=== PATIENT | female | born 1985 | race Caucasian/White ===

== ENCOUNTER 2017-01-05 11:22 | Emergency (ER) | payer BC ==
[2017-01-05] MEDS ORDERED: oxyCODONE/Acetamin 5/325 MG* TAB PO ONE (13:50)
--- NOTE | 2017-01-05 13:57 | ED ---
Back Pain - HPI Summary HPI Summary: 31 female presents complaining of chronic lower back pain that has been causing her pain since Dec 05 of this month and has progressively getting worse. Patient states she has a history of back pain. She called her PCP who told her to come to ED to see if she could have the MRI expedited. She has been taking ibuprofen 3000mg a day and prednisone with little relief. She has also tried taking naproxen and tramadol in the past without any relief. She has been using ice/heat. She has been unable to take care of her daughter, move or walk because the pain is so bad. She is really tired of the pain and just could not take it anymore. Pain radiates into her buttocks and down her right leg, it also has started going into her left leg. Denies saddle anesthesia, numbness/ tingling and bladder/bowel incontinence. No difficulty breathing. - History of Current Complaint Chief Complaint: EDBackInjuryPain Stated Complaint: BACK PAIN / DIFF WALKING Time Seen by Provider: 01/05/17 11:57 Hx Obtained From: Patient Hx Last Menstrual Period: IUD - INTERMITTENT BLEEDING SINCE JUNE 2015 Onset/Duration: Gradual Onset, Worse Since Onset/Duration: Started Weeks Ago, Atraumatic, Worse Since Timing: Constant Severity Initially: Moderate Severity Currently: Moderate Pain Intensity: 8 Pain Scale Used: 0-10 Numeric Character: Sharp, Aching Aggravating Symptom(s): Movement, Lifting, Walking Alleviating Symptom(s): Rest Associated Signs And Symptoms: Positive: Negative, Pain with Weight Bearing. Negative: Swelling, Redness, Bruising, Weakness, Numbness, Tingling, Bladder Incontinence, Bowel Incontinence - Allergies/Home Medications Allergies/Adverse Reactions: Allergies Allergy/AdvReac Type Severity Reaction Status Date / Time Hydrocodone AdvReac Nausea Verified 01/05/17 11:33 cold stimulus Allergy Severe See Comment Uncoded 01/05/17 11:33 PMH/Surg Hx/FS Hx/Imm Hx Cardiovascular History: Denies: Hx Pacemaker/ICD Sensory History: Denies: Hx Contacts or Glasses, Hx Hearing Aid Opthamlomology History: Denies: Hx Contacts or Glasses Neurological History: Reports: Hx Migraine - 3-4 TIMES PER MONTH- TREATS WITH IBUPROFEN, Other Neuro Impairments/Disorders - HX OF MIGRAINES Psychiatric History: Reports: Hx Anxiety - ONLY WHEN FLY'S, Hx Depression - NO MEDICATION FOR AT THIS TIME- STATES PLANS TO START MEDICATION SOON Denies: Hx Eating Disorder, Hx of Violent Episodes Against Others Infectious Disease History: No Infectious Disease History: Denies: History Other Infectious Disease, Traveled Outside the [place] in Last 30 Days - Social History Alcohol Use: Occasionally Substance Use Type: Reports: None Smoking Status (MU): Never Smoked Tobacco Review of Systems Constitutional: Negative Cardiovascular: Negative Respiratory: Negative Gastrointestinal: Negative Genitourinary: Negative Positive: Arthralgia, Myalgia, Decreased ROM - lower back Skin: Negative Neurological: Negative Psychological: Normal All Other Systems Reviewed And Are Negative: Yes Physical Exam Triage Information Reviewed: Yes Vital Signs On Initial Exam: Initial Vitals Temp Pulse Resp BP Pulse Ox 98.1 F 95 16 129/78 100 01/05/17 11:33 01/05/17 11:33 01/05/17 11:33 01/05/17 11:33 01/05/17 11:33 Vital Signs Reviewed: Yes Appearance: Positive: Well-Appearing, Well-Nourished, Pain Distress Skin: Positive: Warm, Skin Color Reflects Adequate Perfusion, Dry Head/Face: Positive: Normal Head/Face Inspection Eyes: Positive: Normal, EOMI, MOLLY, Conjunctiva Clear ENT: Positive: Hearing grossly normal Neck: Positive: Supple, Nontender, No Lymphadenopathy Respiratory/Lung Sounds: Positive: Clear to Auscultation, Breath Sounds Present Cardiovascular: Positive: Normal, RRR, Pulses are Symmetrical in both Upper and Lower Extremities - 2+ bilaterally Abdomen Description: Positive: Nontender, Soft, Bruit. Negative: CVA Tenderness (R), CVA Tenderness (L) Bowel Sounds: Positive: Present Musculoskeletal: Positive: Limited @ - due to pain with flexion of right leg, 4/ 5 strength. sensation and skin intact. no ecchymosis or deformity noted. tenderness on palpation of L4-S1 level of paravetebral muscles. Minimal bony tenderness., Pain @ - L4-S1. Negative: Km Sign Left, Km Sign Right, Edema Left, Edema Right Neurological: Positive: Normal, Sensory/Motor Intact, Alert, Oriented to Person Place, Time, CN Intact II-III, Reflexes Intact, NV Bundle Intact Distally, Normal Gait - favoring left leg, walks with limp Psychiatric: Positive: Normal Diagnostics - Vital Signs Vital Signs Temp Pulse Resp BP Pulse Ox 01/05/17 11:33 98.1 F 95 16 129/78 100 - Laboratory Lab Statement: Any lab studies that have been ordered have been reviewed, and results considered in the medical decision making process. - Radiology lumbar spine Xray Interpretation: Positive (See Comments) - DEGENERATIVE DISC DISEASE AND OSTEOARTHRITIS, MOST PRONOUNCED AT L4-L5 Radiology Interpretation Completed By: Radiologist Back Pain Course/Dx - Course Course Of Treatment: x-ray was obtained showing DDD and osteoarthritis. patient will be given flexeril and pain medication to take when she gets home. also given lidoderm patch in ED. Referral to back specialist. aware of worsening symptoms. - Diagnoses Differential Diagnosis/HQI/PQRI: Positive: Cauda Equina Syndrome, Fracture, Herniated Disc, Strain, Sprain Provider Diagnoses: Chronic back pain Discharge - Discharge Plan Condition: Stable Disposition: HOME Prescriptions: Cyclobenzaprine TAB* [Flexeril TAB*] 10 mg PO DAILY #10 tab Lidocaine PATCH 5%* [Lidoderm 5% Patch*] 1 patch TRANSDERM DAILY #5 patch Patient Education Materials: Lumbar Radiculopathy (ED), Chronic Back Pain (ED) , Degenerative Disc Disease (ED) Referrals: Vince Childers MD [Primary Care Provider] - Juan Manuel Hawkins MD [Medical Doctor] - Additional Instructions: Take medication as prescribed. Do not drive while taking these medications as they will make you drowsy. Make an appointment with Dr Hawkins for further evaluation and imaging. If you start to develop worsening symptoms such as numbness of inner thighs, difficulty going to the bathroom or numbness in your legs please seek medical attention immediately. Rest, use heat and ice as needed.
--- NOTE | 2017-01-05 14:28 | RAD ---
HISTORY: Back pain COMPARISONS: None VIEWS: 5 , Frontal, lateral, coned-down lateral sacral, and bilateral oblique views of the lumbar spine. FINDINGS: ALIGNMENT: The alignment is normal. VERTEBRAL BODIES: There is anterolateral marginal osteophyte formation with sclerotic reactive end the changes, most pronounced at L4-L5 JOINTS: There is facet hypertrophic change throughout the lumbar spine. INTERVERTEBRAL DISCS: There is diffuse loss of intervertebral disc height. SOFT TISSUE: Unremarkable. OTHER: The pelvis is unremarkable. The lung bases are clear. IMPRESSION: DEGENERATIVE DISC DISEASE AND OSTEOARTHRITIS, MOST PRONOUNCED AT L4-L5
[2017-01-05] MEDS ORDERED: Lidocaine PATCH 5%* 1 PATCH ONE (14:57)
[2017-01-05] MEDS ORDERED: Lidocaine PATCH 5%* 1 PATCH TRANSDERM SCH (15:00)
[2017-01-05 15:07] VITALS: BP 124/79
[2017-01-05] MEDS ORDERED: Lidocaine Patch REMOVE* 1 NOTE MISC SCH (21:00)
== END 2017-01-05 15:02 | disposition home or self-care (01) ==
LOC: ED 11:22
DX: M54.5 Low back pain (principal); G89.29 Other chronic pain; M51.36 Other intervertebral disc degeneration, lumbar region; Z88.5 Allergy status to narcotic agent
CPT/HCPCS: 72110; 99282; A9270-GY

== ENCOUNTER 2017-04-08 20:39 | Emergency (ER) | payer BC ==
[2017-04-08 22:24] VITALS: BP 136/80
--- NOTE | 2017-04-08 22:34 | UC ---
Throat Pain/Nasal Richar HPI - HPI Summary HPI Summary: 1. Sore throat worsening over the past 2 days 2. Can feel her IUD in her cervix and wants it removed - History of Current Complaint Chief Complaint: UCGeneralIllness Stated Complaint: THROAT Time Seen by Provider: 04/08/17 22:20 Hx Obtained From: Patient Hx Last Menstrual Period: now? ?: No Onset/Duration: Sudden Onset, Lasting Days - 2, Still Present Severity: Moderate Pain Intensity: 5 Pain Scale Used: 0-10 Numeric Cough: None - Allergies/Home Medications Allergies/Adverse Reactions: Allergies Allergy/AdvReac Type Severity Reaction Status Date / Time Hydrocodone AdvReac Nausea Verified 04/08/17 22:24 cold stimulus Allergy Severe See Comment Uncoded 01/07/17 12:20 Home Medications: Home Medications Amphetamine-Dextroamphetamine [Adderall Xr 5 mg-] 1 cap PO PRN 04/08/17 [History ] PMH/Surg Hx/FS Hx/Imm Hx Previously Healthy: No Endocrine History Of: Denies: Diabetes, Thyroid Disease Cardiovascular History Of: Denies: Cardiac Disorders, Hypertension, Pacemaker/ICD Respiratory History Of: Denies: COPD, Asthma Neurological History Of: Reports: Migraine - 3-4 TIMES PER MONTH- TREATS WITH IBUPROFEN Psychological History Of: Reports: Anxiety - ONLY WHEN FLY'S, Depression - NO MEDICATION FOR AT THIS TIME- STATES PLANS TO START MEDICATION SOON - Surgical History Surgical History: None - Family History Known Family History: Positive: None Family History: no reported cardio vascular issues in family lineage - Social History Occupation: Student Lives: With Family Alcohol Use: Occasionally Substance Use Type: None Smoking Status (MU): Never Smoked Tobacco - Immunization History Most Recent Influenza Vaccination: fall 2013 Most Recent Tetanus Shot: 01/04/15 Most Recent Pneumonia Vaccination: none Review of Systems Constitutional: Negative Skin: Negative Eyes: Negative ENT: Sore Throat Respiratory: Negative Cardiovascular: Negative Gastrointestinal: Negative Genitourinary: Other - some spotting Motor: Negative Neurovascular: Negative Musculoskeletal: Negative Neurological: Negative Psychological: Negative All Other Systems Reviewed And Are Negative: Yes Physical Exam Triage Information Reviewed: Yes Appearance: Well-Appearing, No Pain Distress, Well-Nourished Vital Signs: Initial Vital Signs Temp 98.6 F 04/08/17 22:18 Pulse 88 04/08/17 22:18 Resp 20 04/08/17 22:18 BP 136/80 04/08/17 22:18 Pulse Ox 100 04/08/17 22:18 Vital Signs Reviewed: Yes Eye Exam: Normal Eyes: Positive: Conjunctiva Clear ENT Exam: Normal ENT: Positive: Normal ENT inspection, Hearing grossly normal, Pharynx normal, TMs normal. Negative: Nasal congestion, Nasal drainage, Tonsillar swelling, Tonsillar exudate, Trismus, Muffled/hoarse voice Dental Exam: Normal Neck exam: Normal Neck: Positive: Supple, Nontender, No Lymphadenopathy Respiratory Exam: Normal Respiratory: Positive: Chest non-tender, Lungs clear, Normal breath sounds, No respiratory distress, No accessory muscle use Cardiovascular Exam: Normal Cardiovascular: Positive: RRR, No Murmur, Pulses Normal, Brisk Capillary Refill Abdominal Exam: Normal Abdomen Description: Positive: Nontender, No Organomegaly, Soft Bowel Sounds: Positive: Present Musculoskeletal Exam: Normal Musculoskeletal: Positive: Strength Intact, ROM Intact, No Edema Neurological Exam: Normal Neurological: Positive: Alert, Muscle Tone Normal Psychological Exam: Normal Skin Exam: Normal Re-Evaluation - Re-Evaluation First Eval Change: Unchanged - IUD removed with ease--tolerated well Throat Pain/Nasal Course/Dx - Course Assessment/Plan: prednisone for worsening sore throat pain--increase fluids tylenol, follow with pcp. 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 or planned parent rivera this week to obtain contrception and use alterate BC utill seen - Differential Dx/Diagnosis Differential Diagnosis/HQI/PQRI: Laryngitis, Pharyngitis, Sinusitis, URI Provider Diagnoses: Viral Pharyngitis, IUD removal Discharge - Discharge Plan Condition: Stable Disposition: HOME Prescriptions: predniSONE TAB* [Deltasone TAB*] 50 mg PO DAILY #4 tab Patient Education Materials: Prednisone (By mouth), Pharyngitis (ED) Referrals: Vince Childers MD [Primary Care Provider] - If Needed Additional Instructions: It is important to use an alternate form of control until you get another IUD placed
== END 2017-04-08 23:30 | disposition home or self-care (01) ==
LOC: UCEAST 20:39
DX: J02.9 Acute pharyngitis, unspecified (principal); R10.2 Pelvic and perineal pain; N89.8 Other specified noninflammatory disorders of vagina; Z32.02 Encounter for pregnancy test, result negative; Z30.432 Encounter for removal of intrauterine contraceptive device; G43.909 Migraine, unspecified, not intractable, without status migrainosus; F41.9 Anxiety disorder, unspecified; F32.9 Major depressive disorder, single episode, unspecified; Z88.5 Allergy status to narcotic agent
CPT/HCPCS: 81003; 84702; 87086; 87651; 99212; G0463

== ENCOUNTER → 2017-11-17 06:00 | Day surgery (SDC) | payer BC ==
[~2017-11-17 06:00] MED LIST: Buffered Lidocaine 0.9% SYRIN* 5 ML/SYR SYRINGE INTRADERM ONE; Buffered Lidocaine 0.9% SYRIN* 5 ML/SYR SYRINGE ONE; Bupivacaine 0.25% SDV* 30 ML ONE; Dexamethasone IV* 4 MG/ML 1 ML (4 MG) ONE; DiMENhydriNATE IV* 50 MG/ML VIAL IV PUSH PRN; DiMENhydriNATE IV* 50 MG/ML VIAL ONE; Famotidine TAB* 20 MG ONE; Famotidine TAB* 20 MG PO ONE; Ketorolac INJ* 30 MG/ML 1 ML VIAL IV PRN; Ketorolac INJ* 30 MG/ML 1 ML VIAL ONE; Lidocaine 1% MPF wEPI 200,000* 30 ML SDV ONE; Lidocaine 2% PF * 5 ML VIAL ONE; Metoclopramide TAB* 10 MG ONE; Metoclopramide TAB* 10 MG PO ONE; Ondansetron INJ* 2 MG/ML VIAL ONE; Propofol* 10 MG/ML 20 ML BTL IV PUSH ONE; Scopolamine 1.5 mg* PATCH ONE; Sodium Citrate/Citric Acid* 15 ML UDC ONE; Sodium Citrate/Citric Acid* 15 ML UDC PO ONE; ceFAZolin 2 GM PREMIX (*) 2 GM/50 ML BAG IVPB ONE; fentaNYL* 50 MCG/ML 2 ML VIAL (100 MCG VIAL) IV PRN; fentaNYL* 50 MCG/ML 2 ML VIAL (100 MCG VIAL) ONE; oxyCODONE/Acetamin 5/325 MG* TAB PO PRN; traMADol TAB* 50 MG PO PRN
[2017-11-17 16:06] VITALS: BP 110/62
== END | disposition home or self-care (01) ==
LOC: OR 06:00
PROVIDERS: ATTEND Plastic Surgery
DX: N62 Hypertrophy of breast (principal); M54.9 Dorsalgia, unspecified; M54.2 Cervicalgia; M25.519 Pain in unspecified shoulder; M51.36 Other intervertebral disc degeneration, lumbar region
CPT/HCPCS: 81025; 88305; A9270-GY; J0690; J1100; J1240; J1885; J2001; J2405; J2704; J3010

== ENCOUNTER 2018-01-12 07:24 | Emergency (ER) | payer BC ==
--- OUTSIDE RECORDS SUMMARY | 2018-01-12 07:35 | XMS REPORT ---
:1985 External Reference #:[id number] Author Organization [facility] Address [address] [place] [address] Phone [phone] Care Team Providers Name Role Phone Vince Childers Care Team Information Asset Protection Lead Unavailable Vince Childers Primary Care Physician Unavailable Payers Type Date Identification Numbers Payment Provider Subscriber Commercial Effective: Policy Number: [id number] BC/BS Of TRUDY Anirudh Omalley 2016 PayID: [id number] [address] [address] [place] [address] Problems Date Description Provider Status Onset: 07/29/2011 Folliculitis Vince Childers M.D. Active Onset: 06/20/2013 Urticaria due to cold and heat Vince Childers M.D. Active Onset: 06/20/2013 Acne Vince Childers M.D. Active Onset: 06/20/2013 Migraine Vince Childers M.D. Active Onset: 06/20/2013 Headache Vince Childers M.D. Active Onset: 02/01/2016 Rosacea Vince Childers M.D. Active Onset: 02/01/2016 Malaise and fatigue Vince Childers M.D. Active Onset: 02/01/2016 Polyarthropathy Vince Childers M.D. Active Family History Date Family Member(s) Problem(s) Comments Father Unknown hx Father Has alcoholism General anxiety Mother lupus, Ra, Crohns Number of Siblings Siblings: 1 First Brother Unremarkable Social History Type Date Description Comments Education Highest level of education completed is; Masters in social work and public adminWorking on PHD Marital Status Patient is Occupation Student [employer] Cigarette Use Nonsmoker ETOH Use Social Alcohol Smoking nonsmoker Daily Caffeine Some Caffeine Exercise Type/Frequency Current Exercises sporadically Allergies, Adverse Reactions, Alerts Date Description Reaction Status Severity Comments 03/15/2007 Hydrocodone active Nausea/Vomit Medications Medication Date Status Form Strength Qnty SIG Indications Ordering Provider Wellbutrin XL 12/22 Active Tablets 150mg 30tab 1 by mouth F32.9 ER 24HR s every day Sasha, Must Be HANDLE BENDER Brand Name, had itching with generic Mometasone 12/22 Active Cream 0.1% 15gm apply to H01.009 Hazel Furoate affected Sasha, areas once a HANDLE BENDER day Westcort 12/22 Active Ointment 0.2% 15gm apply L71.0 topically Sasha, edge of lips HANDLE BENDER once daily, not to exceed 3 weeks routine use Xanax 10/27 Active Tablets 0.5mg 40tab 1-2 tid prn H01.009 s Sasha, HANDLE BENDER Amphetamine-Dex 03/11 Active Tablets 5mg 90tab 1 by mouth R41.840 Hazel troamphetamine s three times Sasha, daily as HANDLE BENDER needed Epipen 2-José 06/24 Active Device 0.3mg/0.3 1unit use as Vince Le /2012 AARON Childers M.D. Mometasone 10/27 Hx Cream 0.1% 15gm apply to H01.009 Hazel Furoate affected Sasha, - areas once a HANDLE BENDER Xanax 09/15 Hx Tablets 0.25mg 15tab 1-2 tab po 300.00 s tid prn fear Sasha, - of flying HANDLE BENDER 10/27 Carafate 06/23 Hx Tablets 1gm 40tab Chew one by Bryn.Concetta Salcido s mouth 4 Pablo, - times daily, [employer] 10/27 prior to meals and at bedtime Zofran 06/23 Hx Tablets 4mg 20tab Take one by K29.00 Tiffany Salcido s mouth every Pablo, - 4-6 hours as [employer] 10/27 needed for nausea or vomiting Omeprazole 06/23 Hx Capsules 20mg 30cap Take one by K29.00 Tiffany Salcido s mouth twice Pablo, - daily [employer]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 Fluocinolone 05/06 Hx Oil 0.01% 20ml instill 5 Hazel Acetonide drops into Sasha, Drops - affected ear HANDLE BENDER 10/27 bid x 7- days Vyvanse 01/20 Hx Capsules 10mg 30cap take one R41.840 s capsule by Sasha, - mouth once HANDLE BENDER 03/11 daily, maximum 1 per day/ No Tramadol W This Med Naproxen 12/26 Hx Tablets 500mg 60tab 1 by mouth s twice a day [facility], - with food HANDLE BENDER 03/11 Tramadol HCL 12/26 Hx Tablets 50mg 60tab 1 every 6 s hours as [facility], - needed pain HANDLE BENDER 03/11 Famotidine 11/12 Hx Tablets 40mg 20tab 1 tab by L29.8 s mouth every [facility], - 12 hours x HANDLE BENDER 05/06 3-4 days Hydroxyzine HCL 11/12 Hx Tablets 10mg 60tab 1 tab by L29.8 s mouth as [facility], - needed itch HANDLE BENDER 05/06 four times a day as needed Venlafaxine HCL 11/12 Hx Tablets 25mg 30tab 1 by mouth R41.840 s every day [facility], - HANDLE BENDER 01/20 Bupropion HCL 10/15 Hx Tablets 100mg 90tab 1 po daily s in the [facility], - morning, HANDLE BENDER 11/12 follow-up in office in 4-6 weeks Ergocalciferol 09/23 Hx Capsules [id number] 8caps 1 by mouth weekly x 8 Sasha, - weeks HANDLE BENDER 03/11 Prednisone 09/12 Hx Tablets 50mg 5tabs 1 by mouth every day [facility], - HANDLE BENDER 01/20 Physical 08/14 Hx treatment M54.5 [facility] and Marcus, - evaluation [facility] 08/22 of lower back pain Ranitidine HCL 02/24 Hx Tablets 150mg 30tab 1 po bid prn K29.60 s Corneliuschancesarabjit, - [facility] 08/14 Note 02/24 Hx pt was seen K29.60 here today Sierra, - [facility] 02/25 Triamcinolone 01/31 Hx Cream 0.1% 30gm apply to L71.0 Vince TOusmane Acetonide /2015 affected Midura, - skin twice a M.D. Westcort 11/23 Hx Ointment 0.2% 15gm apply L71.0 Hazel topically Sasha, - edge of lips HANDLE BENDER 08/14 once daily, not to exceed 3 weeks routine use Fluoxetine HCL 04/19 Hx Capsules 20mg 30cap 1 po qd 311 s Esequiel, [employer] - 06/21 Loratadine 06/20 Hx Tablets 10mg 30tab 1 po qd 708.2 Vince T. /2012 s Liseth, - M.DOusmane 11/22 Tinidazole 05/11 Hx Tablets 500mg 4tabs 2 Gm po x 1 787.91 Sharyn dose Marcus, - [facility] 06/20 Sumatriptan 04/05 Hx Tablets 50mg 9tabs take 1 346.90 Sharyn tablet by Marcus, - mouth at [facility] 08/14 onset of headache may repeat dose in 2 hours Doxycycline 07/29 Hx Capsules 100mg 20cap 1 po bid Vince Le Hyclate /2010 srikanth Childers - M.DOusmane 04/05 Work Excuse 12/24 Hx unable to Junior Garrett /2010 work for [employer], - the next M.D. 07/02 2-3 days /2010 due to illness Augmentin 12/24 Hx Tablets 500-125mg 16tab 1 po bid Junior Garrett /2010 s with meals [employer] - MKiko 07/02 Zithromax Z-José 11/14 Hx Tablets 250mg 1tabs 2 po qd x1 460 Riley AOusmane /2009 then 1 po qd Marlon, - as directed MKiko 11/19 Kenalog 03/15 Hx Cream 0.5% 15gm apply to 692.9 Lissette A affected Wood, [employer]IN[employer] CONSULTANT - areas 2-3 06/24 times A day /2006 Xanax 11/13 Hx Tablets 0.5mg 40tab 1-2 tid prn 300.00 s Marcus, - Afnp-C 01/31 Doxycycline 11/13 Hx 0 100mg 60uni 1 po qd to Vince T. ts bid Liseth, - MKiko 06/24 Benzac W Wash 11/13 Hx Liquid 5% 4Oz cleanse skin Vince Le bid prn Liseth - Darlin 06/24 Merina IUD 08/04 Hx Inserted By [facility] 04/19 [facility] Five Years Xanax 08/04 Hx Tablets 0.25mg 30tab 1-2 tab po 300.00 Vince Le s tid prn Liseth - Darlin 09/17 Tylenol W/ 08/04 Hx Tablets 300mg;30 30tab 1-2 q 6-8h 719.46 Jaymie Codeine #3 /2005 mg s prn pain Mariah, - HANDLE BENDER 06/24 Physical 04/22 Hx treatment Vince TOusmane and Liseth, - evaluation M.DOusmane 10/11 lt knee pain /2007 and low back pain Bactrim DS 01/25 Hx 6unit 1 po bid x 3 s days Marcus, - Afnp-[facility] 04/22 Prilosec 04/25 Hx 20mg 30uni one daily by ts mouth as Marcus, - directed Afnp-C 04/22 Aciphex 04/24 Hx 20mg 30uni 1 PO qd ts Mariah, - HANDLE BENDER 04/25 Augmentin 04/24 Hx 500mg 20uni 1 bid ts Mariah, - HANDLE BENDER 01/25 Depoprovera 09/22 Hx [facility] 04/24 Of Prilosec 09/22 Hx 20mg 30uni 1 PO qd Riley A. ts Angel Mason M.D. 09/22 Aciphex 09/22 Hx 20mg 1 PO qd Riley A. Angel Mason M.D. 04/24 Bleph 10 Oph 11/05 Hx 2.5ml 1-2 gtts Vince TOusmane Affected Midura, - Eyes Q2-3 M.D. 09/22 While Awake Until Clear Vermox 11/24 Hx 1unit 1 po Sharyn /1997 s Marcus, - Afnp-C 11/25 Ortho-Cyclen Hx Tablets 0.25-35mg 84tab 1 po qd Unknown /0000 -mcg s - 06/21 Immunizations CPT Code Status Date Vaccine Lot # [id number] Given 09/12/2016 Influenza vac quadrivalent preservative free 3yrs [id number] [place] [id number] Given 09/19/2015 Influenza Vac, Quadriv[place], [place] [address] Given 11/15/2013 Preservative free flu 3 yrs+ and older [id number] Given 06/24/2007 Meningococcal Conjugate Vaccine,Serogroups For [id number] Intramuscular Use Vital Signs Date Vital Result Comment 12/22/2017 BP Systolic 110 mmHg BP Diastolic 78 mmHg Heart Rate 80 /min Body Temperature 98.2 F Respiratory Rate 18 /min Height 66.5 inches 5'6.50" Weight 210.00 lb BMI (Body Mass Index) 33.4 kg/m2 10/27/2017 BP Systolic 108 mmHg BP Diastolic 80 mmHg Heart Rate 78 /min Body Temperature 98.4 F Height 66.5 inches 5'6.50" Weight 206.12 lb BMI (Body Mass Index) 32.8 kg/m2 06/23/2017 BP Systolic 116 mmHg BP Diastolic 60 mmHg Heart Rate 90 /min Body Temperature 98.4 F Respiratory Rate 16 /min Height 66.5 inches 5'6.50" Weight 218.25 lb BMI (Body Mass Index) 34.7 kg/m2 05/06/2017 BP Systolic 100 mmHg BP Diastolic 70 mmHg Heart Rate 68 /min Body Temperature 97.8 F Respiratory Rate 16 /min Height 66.5 inches 5'6.50" Weight 208.00 lb BMI (Body Mass Index) 33.1 kg/m2 03/11/2017 BP Systolic 110 mmHg BP Diastolic 64 mmHg Heart Rate 68 /min Body Temperature 97.8 F Respiratory Rate 16 /min Height 66.5 inches 5'6.50" Weight 215.00 lb BMI (Body Mass Index) 34.2 kg/m2 01/20/2017 BP Systolic 104 mmHg BP Diastolic 70 mmHg Heart Rate 74 /min Body Temperature 98.2 F Respiratory Rate 16 /min Height 66.5 inches 5'6.50" Weight 220.00 lb BMI (Body Mass Index) 35.0 kg/m2 11/12/2016 BP Systolic 110 mmHg BP Diastolic 74 mmHg Heart Rate 84 /min Body Temperature 98.0 F Respiratory Rate 18 /min Height 66.5 inches 5'6.50" Weight 214.00 lb BMI (Body Mass Index) 34.0 kg/m2 09/12/2016 BP Systolic 104 mmHg BP Diastolic 70 mmHg Heart Rate 78 /min Body Temperature 97.9 F Height 66.5 inches 5'6.50" Weight 217.50 lb BMI (Body Mass Index) 34.6 kg/m2 08/22/2016 BP Systolic 110 mmHg BP Diastolic 70 mmHg Heart Rate 80 /min Body Temperature 97.9 F Respiratory Rate 16 /min Height 66.5 inches 5'6.50" Weight 213.00 lb BMI (Body Mass Index) 33.9 kg/m2 08/14/2016 BP Systolic 110 mmHg BP Diastolic 70 mmHg Heart Rate 84 /min Body Temperature 97.7 F Respiratory Rate 16 /min Height 66.5 inches 5'6.50" Weight 213.12 lb BMI (Body Mass Index) 33.9 kg/m2 02/25/2016 BP Systolic 110 mmHg BP Diastolic 80 mmHg Heart Rate 76 /min Body Temperature 98.1 F Respiratory Rate 18 /min Height 66.5 inches 5'6.50" Weight 183.00 lb BMI (Body Mass Index) 29.1 kg/m2 02/01/2016 BP Systolic 116 mmHg BP Diastolic 70 mmHg Heart Rate 72 /min Body Temperature 98.6 F Respiratory Rate 16 /min Height 66.5 inches 5'6.50" Weight 185.00 lb BMI (Body Mass Index) 29.4 kg/m2 11/23/2015 BP Systolic 100 mmHg BP Diastolic 74 mmHg Heart Rate 66 /min Body Temperature 97.7 F Height 66.5 inches 5'6.50" Weight 191.38 lb BMI (Body Mass Index) 30.4 kg/m2 06/22/2014 BP Systolic 86 mmHg BP Diastolic 62 mmHg Heart Rate 84 /min Body Temperature 97.0 F Height 66.5 inches 5'6.50" Weight 205.12 lb BMI (Body Mass Index) 32.6 kg/m2 04/19/2014 BP Systolic 100 mmHg BP Diastolic 70 mmHg Heart Rate 76 /min Body Temperature 96.8 F Respiratory Rate 12 /min Height 66.5 inches 5'6.50" Weight 197.00 lb BMI (Body Mass Index) 31.3 kg/m2 06/20/2013 BP Systolic 110 mmHg BP Diastolic 76 mmHg Heart Rate 72 /min Body Temperature 98.2 F Height 66.5 inches 5'6.50" Weight 188.00 lb BMI (Body Mass Index) 29.9 kg/m2 05/11/2013 BP Systolic 120 mmHg BP Diastolic 70 mmHg Heart Rate 72 /min Body Temperature 97.3 F Height 66.5 inches 5'6.50" Weight 198.00 lb BMI (Body Mass Index) 31.5 kg/m2 04/05/2013 BP Systolic 102 mmHg BP Diastolic 70 mmHg Heart Rate 72 /min Height 66.5 inches 5'6.50" Weight 201.00 lb BMI (Body Mass Index) 32.0 kg/m2 07/29/2011 BP Systolic 100 mmHg BP Diastolic 60 mmHg Heart Rate 72 /min Respiratory Rate 14 /min Height 66.5 inches 5'6.50" Weight 191.00 lb BMI (Body Mass Index) 30.4 kg/m2 07/02/2011 BP Systolic 100 mmHg BP Diastolic 60 mmHg Heart Rate 72 /min Height 66.5 inches 5'6.50" Weight 195.00 lb BMI (Body Mass Index) 31.0 kg/m2 12/24/2010 BP Systolic 124 mmHg BP Diastolic 80 mmHg Heart Rate 120 /min Body Temperature 102.8 F 11/14/2010 BP Systolic 124 mmHg BP Diastolic 80 mmHg Heart Rate 88 /min Body Temperature 98.4 F Respiratory Rate 16 /min O2 % BldC Oximetry 98 % Height 66.5 inches 5'6.50" Weight 191.00 lb BMI (Body Mass Index) 30.4 kg/m2 09/25/2010 BP Systolic 92 mmHg BP Diastolic 72 mmHg Heart Rate 84 /min Body Temperature 96.9 F Height 66.5 inches 5'6.50" Weight 188.00 lb BMI (Body Mass Index) 29.9 kg/m2 10/11/2008 BP Systolic 116 mmHg BP Diastolic 66 mmHg Heart Rate 66 /min Body Temperature 98.5 F Height 66.5 inches 5'6.50" Weight 186.00 lb BMI (Body Mass Index) 29.6 kg/m2 04/24/2008 BP Systolic 110 mmHg BP Diastolic 70 mmHg Heart Rate 72 /min Height 66.5 inches 5'6.50" Weight 187.00 lb BMI (Body Mass Index) 29.7 kg/m2 06/24/2007 BP Systolic 110 mmHg BP Diastolic 60 mmHg Body Temperature 74.0 F Height 66.5 inches 5'6.50" Weight 200.00 lb BMI (Body Mass Index) 31.8 kg/m2 03/15/2007 BP Systolic 110 mmHg BP Diastolic 60 mmHg Heart Rate 80 /min Body Temperature 98.6 F Height 66.5 inches 5'6.50" Weight 220.00 lb BMI (Body Mass Index) 35.0 kg/m2 11/13/2006 BP Systolic 110 mmHg BP Diastolic 66 mmHg Heart Rate 66 /min Body Temperature 97.7 F Height 66.5 inches 5'6.50" Weight 216.00 lb BMI (Body Mass Index) 34.3 kg/m2 08/04/2006 BP Systolic 90 mmHg BP Diastolic 70 mmHg Heart Rate 88 /min Height 66.5 inches 5'6.50" Weight 209.00 lb BMI (Body Mass Index) 33.2 kg/m2 04/22/2006 BP Systolic 126 mmHg BP Diastolic 80 mmHg Heart Rate 66 /min Weight 197.00 lb 04/24/2003 BP Systolic 106 mmHg BP Diastolic 78 mmHg Heart Rate 64 /min Weight 199.00 lb 09/22/2000 BP Systolic 110 mmHg BP Diastolic 62 mmHg Heart Rate 70 /min Weight 178.00 lb 08/09/1999 BP Systolic 110 mmHg BP Diastolic 70 mmHg Heart Rate 78 /min Height 56 inches 0'5" Weight 156.00 lb Weight Percentile 90th Height Percentile 5 % Right Visual Acuity Distance 20/20 Left Visual Acuity Distance 20/20 Results Test Date Test Result H/L Range Note Laboratory test 11/17/2017 Surgical Pathology SEE RESULT BELOW 1, 2 finding CBC Auto Diff 11/11/2017 White Blood Count 6.8 10^3/uL 3.5-10.8 Red Blood Count 4.35 10^6/uL 4.0-5.4 Hemoglobin 13.4 g/dL 12.0-16.0 Hematocrit 40 % 35-47 Mean Corpuscular Volume 91 fL 80-97 Mean Corpuscular Hemoglobin 31 pg 27-31 Mean Corpuscular HGB Conc 34 g/dL 31-36 Red Cell Distribution Width 13 % 10.5-15 Platelet Count 313 10^3/uL 150-450 Mean Platelet Volume 8 um3 7.4-10.4 Abs Neutrophils 3.6 10^3/uL 1.5-7.7 Abs Lymphocytes 2.5 10^3/uL 1.0-4.8 Abs Monocytes 0.5 10^3/uL 0-0.8 Abs Eosinophils 0.2 10^3/uL 0-0.6 Abs Basophils 0 10^3/uL 0-0.2 Abs Nucleated RBC 0 10^3/uL Granulocyte % 52.5 % 38-83 Lymphocyte % 36.6 % 25-47 Monocyte % 7.5 % 1-9 Eosinophil % 2.7 % 0-6 Basophil % 0.7 % 0-2 Nucleated Red Blood Cells % 0.1 Type & Screen 11/11/2017 Patient Blood Type O Positive Antibody Screen NEGATIVE Ua - Micro (Fma) 06/23/2017 Appearance slt cloudy Color yellow Glucose, Urine (Fma/CMC/CTX) - Bilirubin - Ketones - SP Grav >=1.030 Blood - PH 5.0 Protein - Urobil 0.2 Nitrite positive Leukocytes (Fma/CMC/Centrex) trace Hyaline - /Lpf Granular - /Lpf WBC (Fma,Centrex) 3-5 RBC 0-1 Mucus sm amt /Lpf Epith few /Lpf Bacteria 3+ /Hpf Amorphous - /Lpf Crystals, Fluid (Fma/CMC/CTX) - Urine (Fma) 06/23/2017 SP Grav >=1.030 Urine, (Fma/CMC/CTX) negative Urine Culture Routine 06/23/2017 Urine Culture, Routine Final report 3 , 4 Result 1 Escherichia coli 3, 5 Antimicrobial Susceptibility See Comment: 3, 6 Laboratory test 04/08/2017 Urine Culture And SEE RESULT BELOW 7 finding Sensitivities Laboratory test 04/08/2017 Poc , Urine Negative Negative 8 finding Poc Urinalysis 04/08/2017 Poc Glucose, Urine Negative Negative Poc Bilirubin, Urine 1+ Negative Poc Ketone, Urine 4+ Negative Poc Specific [place], Urine >=1.030 1.010-1.030 Poc Blood, Urine 2+ Negative Poc pH, Urine 5.5 5-9 Poc Protein, Urine Negative Negative Poc Urobilinogen, Urine 0.2 Negative Poc Nitrite, Urine Negative Negative Poc Leukocytes, Urine Trace Negative Poc Color, Urine Yellow Poc Clarity, Urine Clear 9 Laboratory test finding 04/08/2017 Rapid Strep Molecular Negative Negative 10 Laboratory test finding 11/12/2016 Uric Acid, Serum 4.5 mg/dL 2.5-7.1 11 Metabolic Panel (14), 11/12/2016 Glucose, Serum 86 mg/dL 65-99 Comprehensive BUN 20 mg/dL 6-20 Creatinine, Serum 0.76 mg/dL 0.57-1.00 eGFR If NonAfricn Am 104 mL/min/1.73 >59 eGFR If Africn Am 120 mL/min/1.73 >59 BUN/Creatinine Ratio 26 High 8-20 Sodium, Serum 139 mmol/L 134-144 Potassium, Serum 4.3 mmol/L 3.5-5.2 Chloride, Serum 100 mmol/L 96-106 Carbon Dioxide, Total 21 mmol/L 18-29 Calcium, Serum 9.5 mg/dL 8.7-10.2 Protein, Total, Serum 7.4 g/dL 6.0-8.5 Albumin, Serum 4.6 g/dL 3.5-5.5 Globulin, Total 2.8 g/dL 1.5-4.5 A/G Ratio 1.6 1.1-2.5 Bilirubin, Total 0.8 mg/dL 0.0-1.2 Alkaline Phosphatase, S 39 IU/L 39-117 Ast (Sgot) 12 IU/L 0-40 Alt (SGPT) 8 IU/L 0-32 CBC With Differential/Platelet 11/12/2016 WBC 6.7 x10E3/uL 3.4-10.8 RBC 4.51 x10E6/uL 3.77-5.28 Hemoglobin 13.7 g/dL 11.1-15.9 Hematocrit 41.6 % 34.0-46.6 MCV 92 fL 79-97 MCH 30.4 pg 26.6-33.0 MCHC 32.9 g/dL 31.5-35.7 RDW 12.8 % 12.3-15.4 Platelets 332 x10E3/uL 150-379 Neutrophils 52 % Lymphs 39 % Monocytes 6 % Eos 2 % Basos 1 % Immature Cells TNP Neutrophils (Absolute) 3.5 x10E3/uL 1.4-7.0 Lymphs (Absolute) 2.6 x10E3/uL 0.7-3.1 Monocytes(Absolute) 0.4 x10E3/uL 0.1-0.9 Eos (Absolute) 0.2 x10E3/uL 0.0-0.4 Baso (Absolute) 0.1 x10E3/uL 0.0-0.2 Immature Granulocytes 0 % Immature Grans (Abs) 0.0 x10E3/uL 0.0-0.1 NRBC TNP Hematology Comments: TNP Laboratory test 11/12/2016 Sedimentation 4 mm/hr 0-32 finding Rate-Westergren Laboratory test 09/29/2016 TSH 3.430 uIU/mL 0.450-4.500 finding Thyroxine (T4) Free, Direct, S 1.32 ng/dL 0.82-1.77 Thyroglobulin With 09/29/2016 Thyroglobulin Antibody 6.3 IU/mL High 0.0- 0.9 12 Anti-TG AB Laboratory test 09/29/2016 Thyroglobulin by Rita 10.0 ng/mL 13 finding CBC With 09/12/2016 WBC 10.2 x10E3/uL 3.4-10.8 14 Differential/Platelet RBC 4.43 x10E6/uL 3.77-5.28 14 Hemoglobin 13.7 g/dL 11.1-15.9 14 Hematocrit 40.6 % 34.0-46.6 14 MCV 92 fL 79-97 14 MCH 30.9 pg 26.6-33.0 14 MCHC 33.7 g/dL 31.5-35.7 14 RDW 12.3 % 12.3-15.4 14 Platelets 355 x10E3/uL 150-379 14 Neutrophils 58 % 14 Lymphs 32 % 14 Monocytes 7 % 14 Eos 3 % 14 Basos 0 % 14 Immature Cells TNP 14 Neutrophils (Absolute) 5.9 x10E3/uL 1.4-7.0 14 Lymphs (Absolute) 3.2 x10E3/uL High 0.7-3.1 14 Monocytes(Absolute) 0.7 x10E3/uL 0.1-0.9 14 Eos (Absolute) 0.3 x10E3/uL 0.0-0.4 14 Baso (Absolute) 0.0 x10E3/uL 0.0-0.2 14 Immature Granulocytes 0 % 14 Immature Grans (Abs) 0.0 x10E3/uL 0.0-0.1 14 NRBC TNP 14 Hematology Comments: TNP 14 Metabolic Panel (14), Comprehensive 09/12/2016 Glucose, Serum 90 mg/dL 65 -99 14 BUN 21 mg/dL High 6-20 14 Creatinine, Serum 0.61 mg/dL 0.57-1.00 14 eGFR If NonAfricn Am 120 mL/min/1.73 >59 14 eGFR If Africn Am 139 mL/min/1.73 >59 14 BUN/Creatinine Ratio 34 High 8-20 14 Sodium, Serum 140 mmol/L 136-144 14, 15 Potassium, Serum 4.3 mmol/L 3.5-5.2 14, 16 Chloride, Serum 101 mmol/L 97-106 14, 17 Carbon Dioxide, Total 22 mmol/L 18-29 14 Calcium, Serum 9.3 mg/dL 8.7-10.2 14 Protein, Total, Serum 6.8 g/dL 6.0-8.5 14 Albumin, Serum 4.2 g/dL 3.5-5.5 14 Globulin, Total 2.6 g/dL 1.5-4.5 14 A/G Ratio 1.6 1.1-2.5 14 Bilirubin, Total 0.3 mg/dL 0.0-1.2 14 Alkaline Phosphatase, S 65 IU/L 39-117 14 Ast (Sgot) 11 IU/L 0-40 14 Alt (SGPT) 8 IU/L 0-32 14 Laboratory test finding 09/12/2016 Thyroxine (T4) Free, 0.95 ng/dL 0.82- 1.77 14 Direct, S TSH 5.220 uIU/mL High 0.450-4.500 14 Vitamin D, 25-Hydroxy 21.7 ng/mL Low 30.0-100.0 14, 18 CBC Electronic (Fma) 02/01/2016 WBC 5.8 3.6-9.6 RBC 4.53 3.90-5.70 Hemoglobin (Fma/CMC/CTX) 14.1 g/dL 12.1 - 17.2 Hematocrit (Fma/CMC/CTX) 42.4 % 36.1 - 50.3 Platelets 321 10^3/ul 150-400 Lymph% 42.1 % 17.0-48.0 Mixed% 4.7 Neutrophils % 53.2 Mean Corpuscular Vol 94 82.2-97.4 Mean Corpuscular Hemoglobin 31.2 27.6-33.3 Mean Corpuscular Hemo Concen 33.4 32.0-36.0 RDW 13.5 11.6-13.7 Mean Platelet Volume 6.6 5.5-11.0 Comp. Metabolic Panel (14) 02/01/2016 Glucose, Serum 78 mg/dL 65-99 14 BUN 19 mg/dL 6-20 14 Creatinine, Serum 0.66 mg/dL 0.57-1.00 14 eGFR If NonAfricn Am 117 mL/min/1.73 >59 14 eGFR If Africn Am 135 mL/min/1.73 >59 14 BUN/Creatinine Ratio 29 High 8-20 14 Sodium, Serum 141 mmol/L 134-144 14 Potassium, Serum 4.5 mmol/L 3.5-5.2 14 Chloride, Serum 101 mmol/L 97-108 14 Carbon Dioxide, Total 24 mmol/L 18-29 14 Calcium, Serum 9.3 mg/dL 8.7-10.2 14 Protein, Total, Serum 7.5 g/dL 6.0-8.5 14 Albumin, Serum 4.6 g/dL 3.5-5.5 14 Globulin, Total 2.9 g/dL 1.5-4.5 14 A/G Ratio 1.6 1.1-2.5 14 Bilirubin, Total 0.8 mg/dL 0.0-1.2 14 Alkaline Phosphatase, S 66 IU/L 39-117 14 Ast (Sgot) 11 IU/L 0-40 14 Alt (SGPT) 7 IU/L 0-32 14 Laboratory test finding 02/01/2016 Thyroxine (T4) Free, 1.04 ng/dL 0.82- 1.77 14 Direct, S TSH 1.190 uIU/mL 0.450-4.500 14 Antinuclear Antibodies, Ifa Negative 14, 19 Rheumatoid Arthritis Factor 02/01/2016 Ra Latex Turbid. 7.8 IU/mL 0.0- 13.9 14 ([facility]) Comprehensive Metabolic Prof 06/22/2014 Sodium 145 mEq/L 134-149 Potassium 4.8 mEq/L 3.6-5.5 Chloride 104 mEq/L 94-112 Carbon Dioxide 22 mEq/L 21-32 Glucose 90 mg/dL 70-105 BUN 25 mg/dL 6-26 Creatinine 0.8 mg/dL 0.6-1.4 BUN/Creat Ratio 31.3 CALC 8.0-36.0 Calcium 10.2 mg/dL 8.6-10.2 Total Protein 8.0 g/dL 6.3-8.1 Albumin 4.8 g/dL 3.8-5.5 Globulin 3.2 g/dL 2.0-4.8 A/G Ratio 1.5 CALC 0.6-2.3 Alk. Phosphatase 54 U/L 30-110 Alt (SGPT) 29 U/L 7-35 Ast (Sgot) 29 U/L 5-34 Total Bilirubin 0.3 mg/dL 0.2-1.3 Ua - Non Micro (a) 06/22/2014 Appearance slightly cloudy Color yellow Glucose, Urine (Fma/CMC/CTX) neg Bilirubin neg Ketones trace SP Grav >1.030 Blood large-menses PH 5.5 Protein neg Urobil 0.2 Nitrite positive Yun notified no micr Leukocytes (a/CMC/Centrex) neg wanted per provider CBC Electronic ([facility]) 06/22/2014 WBC 7.2 3.6-9.6 RBC 4.03 3.90-5.70 Hemoglobin (Fma/CMC/CTX) 13.4 g/dL 12.1 - 17.2 Hematocrit (Fma/CMC/CTX) 37.7 % 36.1 - 50.3 Platelets 371 10^3/ul 150-400 Lymph% 33.7 % 17.0-48.0 Mixed% 4.6 Neutrophils % 61.7 Mean Corpuscular Vol 93 82.2-97.4 Mean Corpuscular Hemoglobin 33.3 27.6-33.3 Mean Corpuscular Hemo Concen 35.6 32.0-36.0 RDW 12.7 11.6-13.7 Mean Platelet Volume 6.2 5.5-11.0 Urine Culture And Sensitivities 04/30/2014 Urine Culture (SEE NOTE) 20 Laboratory test finding 04/30/2014 Acetaminophen < 15 g/mL 21 Alcohol < 10 mg/dL <10 Salicylate < 2.50 mg/dL <30 TSH (Thyroid Stimulating Horm) 2.06 IU/mL 0.34-5.60 Urine Drug SCR ED 04/30/2014 Amphetamine Ur Screen None Detected None Detect & [facility] Barbiturates Urine Screen None Detected None Detect Benzodiazepine Urine Screen None Detected None Detect Urine Cannabinoids Screen None Detected None Detect Urine Cocaine Screen None Detected None Detect Urine Opiates Screen None Detected None Detect Urine Phencyclidine Screen None Detected None Detect 22 CBC Auto Diff 04/30/2014 White Blood Count 9.3 10^3/uL 4.8-10.8 Red Blood Count 4.41 10^6/uL 4.0-5.4 Hemoglobin 13.9 g/dL 12.0-16.0 Hematocrit 41 % 35-47 Mean Corpuscular Volume 92 fL 80-97 Mean Corpuscular Hemoglobin 32 pg High 27-31 Mean Corpuscular HGB Conc 34 g/dL 31-36 Red Cell Distribution Width 12 % 10.5-15 Platelet Count 335 10^3/uL 150-450 Mean Platelet Volume 7 um3 Low 7.4-10.4 Abs Neutrophils 6.2 10^3/uL 1.5-7.7 Abs Lymphocytes 2.4 10^3/uL 1.0-4.8 Abs Monocytes 0.5 10^3/uL 0-0.8 Abs Eosinophils 0 10^3/uL 0-0.6 Abs Basophils 0 10^3/uL 0-0.2 Abs Nucleated RBC 0 10^3/uL Granulocyte % 67.4 % 38-83 Lymphocyte % 26.3 % 25-47 Monocyte % 5.4 % 1-9 Eosinophil % 0.4 % 0-6 Basophil % 0.5 % 0-2 Nucleated Red Blood Cells % 0 Urinalysis Profile 04/30/2014 Urine Color Yellow Urine Appearance Cloudy Urine Specific [place] 1.020 1.010-1.030 Urine pH 5.0 5-9 Urine Urobilinogen Negative Negative Urine Ketones 1+ Negative Urine Protein Negative Negative Urine Leukocytes Negative Negative Urine Blood Negative Negative Urine Nitrite Positive Negative Urine Bilirubin Negative Negative Urine Glucose Negative Negative Urine White Blood Cell Trace Absent Urine Red Blood Cell Trace Absent Urine Bacteria 1+ Absent Urine Squamous Epithelial Cell Present Absent Comp Metabolic Panel 04/30/2014 Sodium 135 mmol/L 133-145 Potassium 4.0 mmol/L 3.7-5.6 Chloride 100 mmol/L Low 101-111 Co2 Carbon Dioxide 26 mmol/L 22-32 Anion Gap 9 mmol/L 2-11 Glucose 80 mg/dL 70-100 Blood Urea Nitrogen 16 mg/dL 6-24 Creatinine 0.85 mg/dL 0.51-0.95 BUN/Creatinine Ratio 18.8 8-20 Calcium 9.3 mg/dL 8.6-10.3 Total Protein 7.8 g/dL 6.4-8.9 Albumin 4.4 g/dL 3.2-5.2 Globulin 3.4 g/dL 2-4 Albumin/Globulin Ratio 1.3 1-3 Total Bilirubin 1.00 mg/dL 0.2-1.0 Alkaline Phosphatase 31 U/L Low 34-104 Alt 12 U/L 7-52 Ast 15 U/L 13-39 Egfr Non- 78.5 >60 Egfr 101.0 >60 23 Laboratory test finding 04/19/2014 TSH 3.55 mIU/L 0.50-6.00 24 Throat-Beta Strept 09/28/2013 Throat Beta Strep (SEE NOTE) 25 Culture Comprehensive Metabolic 04/05/2013 Albumin 4.4 g/dL 3.8-5.5 Prof Alk. Phos. 55 U/L 30-110 Alt (SGPT) 13 U/L 7-35 Ast (Sgot) 15 U/L 5-34 BUN 14 mg/dL 6-26 Calcium 9.2 mg/dL 8.6-10.2 Chloride 98 mEq/L 94-112 Creatinine 0.8 mg/dL 0.6-1.4 Carbon Dioxide 26 mEq/L 21-32 Glucose 97 mg/dL 70-105 Sodium 138 mEq/L 134-149 Total Bilirubin 1.0 mg/dL 0.2-1.3 Total Protein 7.1 g/dL 6.3-8.1 Potassium 4.6 mEq/L 3.6-5.5 Globulin 2.7 g/dL 2.0-4.8 A/G Ratio 1.7 Calc 0.6-2.3 BUN/Creat Ratio 16.8 Calc 8.0-36.0 Laboratory test finding 04/05/2013 Antinuclear Abs, Ifa Negative 26 Lipid Profile 04/05/2013 Cholesterol 187 mg/dL 120-200 HDL 41 mg/dL 30-85 Triglycerides 59 mg/dL 30-200 HDL Risk Factor 4.6 CALC High 0.0-4.4 LDL (Calculated) 135 CALC High 0-129 VLDL (Calculated) 12 mg/dL 0-50 CBC Electronic (a) 04/05/2013 WBC 6.8 3.6-9.6 RBC 4.53 3.90-5.70 Hemoglobin (Fma/CMC/CTX) 13.5 g/dL 12.1 - 17.2 Hematocrit (Fma/CMC/CTX) 41.5 % 36.1 - 50.3 Platelets 366 10^3/ul 150-400 Lymph% 34.7 20.5-51.1 Mixed% 5.2 Neutrophils % 60.1 Mean Corpuscular Vol 92 82.2-97.4 Mean Corpuscular Hemoglobin 29.8 27.6-33.3 Mean Corpuscular Hemo Concen 32.5 32.0-36.0 RDW 12.6 11.6-13.7 Mean Platelet Volume 6.7 6.5-11.0 Laboratory test finding 04/05/2013 T-4 Free 1.0 ng/dL 0.8-1.8 27 TSH (Thyrotropin) 1.920 uIU/ml 0.350-5.500 27 Ua - Micro ([facility]) 07/02/2011 Appearance CLEAR Color YELLOW Glucose NEG Bilirubin NEG Ketones NEG SP Grav 1.025 Blood NEG PH 6.5 Protein NEG Urobil 0.2 Nitrite POSITIVE Leukocytes (Fma/CMC/Centrex) NEG Hyaline - /Lpf Granular - /Lpf WBC (a,Centrex) 3-5 RBC 0-1 Mucus - /Lpf Epith FEW /Lpf Bacteria 4+ /Hpf Amorphous - /Lpf Crystals, Fluid (Fma/CMC/CTX) - Z#Comments - Laboratory test finding 09/16/2010 Troponin-I 0 NG/ML Low 0.0-0.06 28 CBC With Electronic Diff 09/16/2010 White Blood Count 7.4 CUMM 4.8-10.8 Red Cell Count 4.26 CUMM 4.2-5.4 Hemoglobin 13.7 g/dL 12.0-16.0 Hematocrit 39 % 35-47 Mean Corpuscular Volume 91 um3 79-97 Mean Corpuscular Hemoglob 32 pg High 27-31 Mean Corpuscular HGB Cone 35 g/dL 32-36 Redcell Distribution WDTH 12 % 10.5-15 Platelet Count 315 CUMM 150-450 Mean Platelet Volume 6.6 um3 Low 7.4-10.4 Gran % 61.6 % 38-83 Lymph % 28.9 % 25-47 Mononuclear % 6.8 % 1-9 Eosinophil % 1.4 % 0-6 Basophil % 1.3 % 0-2 Abs Lymphs 2.2 1.0-4.8 Abs Mononuclear 0.5 0-0.8 Absolute Neutrophil Count 4.6 1.5-7.7 Abs Eosinophils 0.1 0-0.6 Abs Basophils 0.1 0-0.2 Laboratory test finding 09/16/2010 (HCG) Serum NEGATIVE Negative 29 D Dimer Quantitative < 200 Less Than 230 Comp Metabolic Panel 09/16/2010 Sodium 136 mmol/L 135-145 Potassium 3.3 mmol/L Low 3.5-5.0 Chloride 103 mmol/L 101-111 Co2 (Carbon Dioxide) 26.0 mmol/L 22-32 Anion Gap 7.0 mmol/L 2-11 30 Glucose 90 mg/dL 70-100 31 BUN 16 mg/dL 6-24 Creatinine 0.58 mg/dL 0.50-1.40 One Over Creatinine 1.70 BUN/Creatinine Ratio 27.6 High 8-20 Calcium 9.2 mg/dL 8.1-9.9 Total Protein 7.6 GM/DL 6.2-8.1 Albumin 4.4 GM/DL 3.6-5.4 Globulin 3.2 GM/DL 2-4 Albumin/Globulin Ratio 1.4 1-3 Bilirubin Total 1.0 mg/dL 0.4-1.5 32 Alkaline Phosphatase 39 U/L 30-110 Alt (SGPT) 14 U/L 14-54 Ast (Sgot) 23 U/L 12-42 eGFR Non- 133.6 > 60 eGFR 161.6 > 60 33 Laboratory test finding 09/16/2010 Lipase 14 U/L Low 22-51 CPK (Creatine Kinase) 160 U/L 0-170 TSH 2.72 MIU/ML 0.34-5.60 C Reactive Protein < 0.5 mg/dL Less Than 0.5 Erythrocyte Sed Rate 9 MM/HR 0-15 Maite (Antinuclear 09/16/2010 Antinuclear AB NEGATIVE Negative Antibodies) Laboratory test finding 09/16/2010 Anti Dna (Double Stranded NEGATIVE Negative Dna) SM(Blandon) Igg Autoantibodies <0.2 U () 34 Complement C3 107 mg/dL 75-175 35 Complement C4 21 mg/dL 14-40 36 Cardiolipin Igg,Igm,Iga AB 09/16/2010 Cardiolipin Igg AB 5.1 GPL () 37 Cardiolipin Igm AB <4.0 MPL () 38 Cardiolipin Iga AB <4.0 APL () 39 Maite Panel Complete [place] 09/02/2008 Antinuclear AB (Maite) NEGATIVE Negative 40, 41 Rheumatoid Factor (RF) <11.0 IU/mL 0.0-20.0 40 Anti Dna (DS) 9.32 IU/mL <30 40, 42 Antiextractable Nuclear Ag 09/02/2008 [employer] Antibodies 7 U/ml Negative 40 , 43 Blandon Antibodies 3 U/ml Negative 40, 44 Anti Dna (SS) Igg, AB 09/02/2008 Anti-Dna(SS)IgG, Ab, Qn <20 EU 0-19 40, 45 Hla-B27 Disease 09/02/2008 Hla-B27 Negative 40, 46 Association Comprehensive Metabolic 09/02/2008 Albumin 4.6 g/dL 3.8-5.5 40 Prof Alk. Phos. 52 U/L 30-110 40 Alt (SGPT) 10 U/L 7-35 40 Ast (Sgot) 14 U/L 5-34 40 BUN 20 mg/dL 6-26 40 Calcium 10.1 mg/dL 8.6-10.2 40 Chloride 101 mEq/L 94-112 40 Creatinine 1.1 mg/dL 0.6-1.4 40 Carbon Dioxide 32 mEq/L 21-32 40 Glucose 82 mg/dL 70-105 40 Sodium 140 mEq/L 134-149 40 Total Bilirubin 0.9 mg/dL 0.2-1.3 40 Total Protein 7.5 g/dL 6.3-8.1 40 Potassium 4.1 mEq/L 3.6-5.5 40 Globulin 2.9 g/dL 2.0-4.8 40 A/G Ratio 1.6 Calc 0.6-2.2 40 BUN/Creat Ratio 18.8 Calc 8.0-36.0 40 Laboratory test finding 09/02/2008 Free T4 1.19 ng/dL 0.75-1.54 40 TSH 2.55 mIU/L 0.50-6.00 40 Lipid Profile 09/02/2008 Cholesterol 199 mg/dL 120-200 40 HDL 55 mg/dL 30-85 40 Triglycerides 73 mg/dL 30-200 40 HDL Risk Factor 3.6 CALC Low 4.2-7.0 40 LDL (Calculated) 129 CALC 0-129 40 VLDL (Calculated) 15 mg/dL 0-50 40 CBC ([facility]) 09/02/2008 WBC 7.5 3.6-9.6 RBC 4.08 3.90-5.70 Hemoglobin (Fma/CMC/CTX) 13.3 g/dL 12.1 - 17.2 Hematocrit (Fma/CMC/CTX) 38.5 % 36.1 - 50.3 Mean Corpuscular Vol 94.4 82.2-97.4 Mean Corpuscular Hemaglobin 32.6 27.6-33.3 Mean Corpuscular Hemo Concen 34.5 33.0-36.0 Platelets 358 10^3/ul 150-400 Lymph% 29.6 20.5-51.1 Mixed% 9.3 Neutrophils % 61.1 RDW 12.4 11.6-13.7 Mean Platelet Volume 9.6 7.4-10.4 Comp Metabolic-ALL Lab 11/13/2006 Glucose, Serum 95 mg/dL 70-105 Compani (Fma/CMC/CTX) BUN (Fma/CMC/Centrex) 23 mg/dL 6-26 Creatinine (Fma/CMC/CTX) 0.9 mg/dL 0.6-1.4 Sodium 143 134-149 Potassium 4.5 3.6-5.5 Chloride 98 mEq/L 94-112 Co2 25 21-32 Albumin (Fma/CMCC/Centrex) 4.5 3.8-5.5 Total Protein 8.1 g/dL 6.3-8.1 Calcium (Fma/CMC/Centrex) 9.6 mg/dL 8.6-10.2 Alkaline Phosphatase (F/C/CTX) 78 U/L 30-110 Ast (Sgot) (Fma/CMC/Centrex) 17 U/mL 5-34 Alt (SGPT) (CMC/Centrex) 10 10-40 Bilirubin, Total 0.5 mg/dL 0.2-1.3 #GFR, Calculated (CTX) - Laboratory test finding 11/13/2006 TSH (Fma/CMC/Centrex) 4.65 uIU/ml 0.5- 6.0 Free T4 (Fma/CMC/Centrex) 1.14 ng/dL 0.75-1.54 Laboratory test finding 11/13/2006 Antinuclear AB (Maite) NEGATIVE Negative 47 Ua - Non Micro ([facility]ma [facility]) 08/09/1999 Appearance CL YELLOW SP Grav 1.030 Esterase - Nitrite - pH 5.0 Protein - Glucose - Ketones - Urobil - Bilirubin - Blood - 1 NO TRACKING 2 SEE RESULT BELOW Name: ELDER OMALLEY : [address]: Bravo Hamilton MD Acct: [id number] Unit: [id number] AGE: 31 Location: [place] Re11/17/17 SEX: F Status: REG [facility] SPEC: [id number] LANCE: 11/17/17- SUBM DR: Bravo Hamilton MD REQ: [id number] RECD: 11/17/17 STATUS: СВЕТЛАНА HUTCHISON DR: Hazel Baez CONTAMINATION CONSULTANT _ ORDERED: LEVEL 4/2 COMMENTS: NO TRACKING FINAL DIAGNOSIS 1. Breast, right, reduction mammoplasty: -- Benign breast tissue and unremarkable skin (847 g). 2. Breast, left, reduction mammoplasty: -- Benign breast tissue and unremarkable skin (675 g). PRE-OPERATIVE DIAGNOSIS Bilateral breast hypertrophy GROSS DESCRIPTION 1. The specimen is received in formalin labeled, Right Breast Tissue, and consists of an 847 g, 24.0 x 21.5 by up to 5.5 cm aggregate of yellow-pink irregular fibrofatty soft tissue fragments. A few of the fragments are partially surfaced by martel-white wrinkled skin. The cut surface consists predominantly of yellow lobulated adipose tissue with mild interspersed focally rubbery martel-pink fibrous tissue. A discrete lesion is not identified. Received separately in the same container is a 9.5 x 5.0 x 1.4 cm aggregate of martel- pink irregular wrinkled skin fragments. Cop Winder sections, two cassettes. 2. The specimen is received in formalin labeled, Left Breast Tissue, and consists of a 675 g, 23.0 x 16.5 by up to 4.0 cm aggregate of yellow-pink irregular fibrofatty soft tissue fragments. A few of the fragments are partially surfaced by martel-pink wrinkled skin. The cut surface consists predominantly of yellow lobulated adipose tissue with mild interspersed focally rubbery martel-pink fibrous tissue. A discrete lesion is not identified. Received separately in the same container is a 7.3 x 4.2 x 1.1 cm aggregate of martel- pink irregular wrinkled skin fragments. Cop Winder sections, two cassettes. Signed (signature on file) Natanael Cooley MD [id number] END OF REPORT * ML=Testing performed at Main Lab DEPARTMENT OF PATHOLOGY, [address] [place] [id number] Natanael Cooley M.D. Director [facility] # [id number] 3 SRC:clean catch vivas urine tube 4 Source of Specimen: clean catch vivas urine 5 Escherichia coli Source of Specimen: clean catch vivas urine Greater than 100,000 colony forming units per mL 6 Source of Specimen: clean catch vivas urine S=Susceptible; I=Intermediate; R=Resistant P=Positive; N=Negative MICS are expressed in micrograms per mL Antibiotic RSLT#1 RSLT#2 RSLT#3 RSLT#4 Amoxicillin/Clavulanic Acid S Ampicillin S Cefepime S Ceftriaxone S Cefuroxime S Cephalothin S Ciprofloxacin S Ertapenem S Gentamicin S Imipenem S Levofloxacin S Nitrofurantoin S Piperacillin S Tetracycline S Tobramycin S Trimethoprim/Sulfa S 7 SEE RESULT BELOW Name: ELDER OMALLEY : [address]: Lissette Brar MD Acct: [id number] Unit: [id number] AGE: 31 Location: [facility] Re04/08/17 SEX: F Status: DEP ER SPEC: [id number] LANCE: 04/08/17-[address] [facility] [address]: Sharyn Owens NP REQ: [id number] RECD: 04/09/17-1056 STATUS: DUKE DEJESUS DR: Vince Brar MD _ SOURCE: URINE SPDESC: ORDERED: Urine Culture Procedure Result Reported Site Urine Culture Final 04/10/17- 1055 ML No Growth (<1,000 CFU/mL) * ML - MAIN LAB ([facility]) . END OF REPORT * ML=Testing performed at Main Lab DEPARTMENT OF PATHOLOGY, [address] [place] [address] Natanael Cooley M.D. Director [facility] # [id number] 8 Feed Manager: [id number] If is still suspected, please repeat test after 48 to 72 hours. 9 Feed Manager: [id number] Feed Manager: [id number] 11 Therapeutic target for gout patients: <6.0 12 Thyroglobulin Antibody measured by [facility]ina [place] Methodology 13 Reference Range: Pubertal Children and Adults: <40 According to the National Academy of Clinical Biochemistry, the reference interval for Thyroglobulin (TG) should be related to euthyroid patients and not for patients who underwent thyroidectomy. TG reference intervals for these patients depend on the residual mass of the thyroid tissue left after surgery. Establishing a post-operative baseline is recommended. The assay quantitation limit is 2.0 ng/mL. 14 2 sst 15 Please note reference interval change 16 Please note reference interval change 17 Please note reference interval change 18 Vitamin D deficiency has been defined by the [place] of Medicine and an Endocrine Society practice guideline as a level of serum 25-OH vitamin D less than 20 ng/mL (1,2). The Endocrine Society went on to further define vitamin D insufficiency as a level between 21 and 29 ng/mL (2). 1. IOM ([place] of Medicine). 2010. Dietary reference intakes for calcium and D. [place]: The National Academies Press. 2. Joey MF, Fidelina RYAN, Maurisio ARIZA, et al. Evaluation, treatment, and prevention of vitamin D deficiency: an Endocrine Society clinical practice guideline. JCEM. 2011 May; 96(7):1911-30. 19 Negative <1:80 Borderline 1:80 Positive >1:80 20 RUN DATE: 05/02/14 [facility] LIVE PAGE 1 RUN TIME: [address] [place] [address] Specimen Inquiry Name: ELDER OMALLEY : [address]: Wale Pina DO Acct: [id number] Unit: [id number] AGE: 28 Location: ED Re04/30/14 SEX: F Status: DEP ER SPEC: [id number] LANCE: 04/30/[address]: Linda GARCIA REQ: [id number] RECD: 04/30/14 STATUS: DUKE HUTCHISON DR: Vince Pina DO _ SOURCE: URINE SPDESC: ORDERED: Urine Culture Procedure Result Verified Site Urine Culture Final 05/02/14- 1149 ML Organism 1 ESCHERICHIA COLI [place] Count >100,000 (Many) CFU/ML Organism 2 NORMAL MEDINA [place] Count 10-25,000 (Moderate) CFU/ML 1. ESCHERICHIA COLI M.I.C. RX --------- ------ Ampicillin >=32 R Cefazolin <=4 S Cefepime <=1 S Ceftriaxone <=1 S Ciprofloxacin <=0.25 S Gentamicin <=1 S Levofloxacin <=0.12 S Meropenem <=0.25 S Nitrofurantoin 128 R Tetracycline <=1 S Pipercillin/Tazobactam <=4 S Trimethoprim/Sulfamethoxazole <=20 S Amoxicillin/Clavulanic Acid 4 S Aztreonam <=1 S Contact the Microbiology Department for any additional antibiotic reporting. END OF REPORT * ML=Testing performed at Main Lab DEPARTMENT OF PATHOLOGY, [facility] [employer] [place], [place] [address] Natanael Cooley M.D. Director [facility] # [id number] 21 Therapeutic concentration: <50 ug/mL Toxic concentration: >120 ug/mL 22 The urine specimen was tested at the listed cutoffs: Drug class test level (ng/ml) Amphetamines 300 Barbituates 200 Benzodiazepine metabolites 200 Cocaine metabolites 300 Cannabinoids 25 Opiates 200 Pcp 25 This is a screening procedure. Positive results are not confirmed. Specimen was received without chain of custody. Results should be used for medical purposes only. 23 Because ethnic data is not always readily available, this report includes an eGFR for both -Americans and non- Americans. The National Kidney Disease Education Program (NKDEP) does not endorse the use of the MDRD equation for patients that are not between the ages of 18 and 70, are , have extremes of body size, muscle mass, or nutritional status, or are non- or non-. According to the National Kidney Foundation, irrespective of diagnosis, the stage of the disease is based on the level of kidney function: Stage Description GFR(mL/min/1.73 m(2)) 1 Kidney damage with normal or decreased GFR 90 2 Kidney damage with mild decrease in GFR 60-89 3 Moderate decrease in GFR 30-59 4 Severe decrease in GFR 15-29 5 Kidney failure <15 (or dialysis) 24 FASTING 25 RUN DATE: 09/30/13 [facility] LIVE PAGE 1 RUN TIME: 835 [facility] [place], [place] [address] Specimen Inquiry Name: ELDER SEGOVIA : [address]: Bravo Shah MD Acct: [id number] Unit: [id number] AGE: 27 Location: [facility] Re09/28/13 SEX: F Status: DEP ER SPEC: [id number] LANCE: 09/28/[address] [facility] [address]: Bravo Shah MD REQ: [id number] RECD: 09/28/13 STATUS: DUKE HUTCHISON DR: Vince Childers MD [facility] _ SOURCE: THROAT SPDESC: ORDERED: Throat Beta Str Procedure Result Verified Site Throat Beta Strep Culture Final 09/30/13- 0835 ML Negative For Group A Beta Streptococcus END OF REPORT * ML=Testing performed at Main Lab DEPARTMENT OF PATHOLOGY, [address] [place] [address] Natanael Cooley M.D. Director [facility] Permit #[id number] 26 Negative <1:80 Borderline 1:80 Positive >1:80 27 1 sst 28 New Reference Range and Interpretation effective 08/19/2002 TnI (ng/ml) INTERPRETATION Less Than 0.06 ng/mL NOT SUPPORTIVE OF DIAGNOSIS OF IN 0.06 - 0.50 ng/ml INDETERMINATE: SUGGEST SERIAL STUDIES IF CLINICALLY INDICATED. Greater than 0.5 ng/mL CONSISTENT WITH DIAGNOSIS OF IN . 29 If is still suspected, please repeat test after 48 to 72 hours. . 30 Anion gap measurement may be of limited value in the presence of any alkalosis, especially in a combined acid base disorder. . 31 Note change in reference range as of 07/06/08. The change was based on recommendations from the [place] Diabetes Association. 32 A metabolite of Naproxen, O-desmethylnaproxen, has been shown to interfere with the Jendrassik-Kemar method for measuring total bilirubin. Samples from patients who have taken Naproxen have shown spurious elevation in total bilirubin levels. 33 Because ethnic data is not always readily available, this report includes an eGFR for both -Americans and non- Americans. The National Kidney Disease Education Program (NKDEP) does not endorse the use of the MDRD equation for patients that are not between the ages of 18 and 70, are , have extremes of body size, muscle mass, or nutritional status, or are non- or non-. According to the National Kidney Foundation, irrespective of diagnosis, the stage of the disease is based on the level of kidney function: Stage Description GFR(mL/min/1.73 m(2)) 1 Kidney damage with normal or decreased GFR 90 2 Kidney damage with mild decrease in GFR 60-89 3 Moderate decrease in GFR 30-59 4 Severe decrease in GFR 15-29 5 Kidney failure <15 (or dialysis) 34 -- REFERENCE VALUE -- <1.0 (Negative) > or=1.0 (Positive) Test Performed by: [facility] Dpt of Lab Med and Pathology [address] [place] [address] Sheet Rock Taper Helper: Emile Ramirez III, M.D. 35 Test Performed by: [facility] Dpt of Lab Med and Pathology [address] [place] [address] Sheet Rock Taper Helper: Emile Ramirez III, M.D. 36 Test Performed by: [facility] Dpt of Lab Med and Pathology [address] [place] [address] Sheet Rock Taper Helper: Emile Ramirez III, M.D. 37 Interpretation: Negative (<10.0 GPL) Test Performed by: [facility] Dpt of Lab Med and Pathology [address] [place] [address] Sheet Rock Taper Helper: Emile Ramirez III, M.D. 38 Interpretation: Negative (<10.0 MPL) Test Performed by: [facility] Dpt of Lab Med and Pathology [address] [place] [address] Sheet Rock Taper Helper: Emile Ramirez III, M.D. 39 Interpretation: Negative (<10.0 APL) Test Performed by: [facility] Dpt Lab Med and Pathology [address] [place] [address] Sheet Rock Taper Helper: Emile Ramirez III, M.D. 40 FASTING 41 (Performed by Enzyme Immunoassay, EIA) 42 < 30 Negative 30-75 Equivocal > 75 Positive . 43 < 10 Negative > or=10 Positive 44 < 10 Negative > or=10 Positive 45 Negative: <20 Borderline: 20 - 25 Positive: >25 46 This test was performed using PCR (Polymerase Chain Reaction)/SSOP (Sequence Specific Oligonucleotide Probes) technique. SBT (Sequence Based Typing) and/or SSP (Sequence Specific Primers) may be used as supplemental methods when necessary. Please contact [facility] Customer Service at if you have any questions. . Director of [facility] Laboratory Dr Nicola Ruff, PhD 47 1 SST Procedures Date CPT Code Description Status 11/12/2016 45159 Electrocardiogram Complete Completed 11/14/2010 70901 Pulse Oximetry Completed Encounters Type Date Location Provider CPT E/M Dx Office Visit 10/27/2017 6:30p Main Office Hazel Baez, [facility] 80144 H01.009 Office Visit 06/23/2017 4:00p [facility] Office Hazel Baez, [facility] 30820 K29.00 A09 Z32.02 Office Visit 05/06/2017 1:45p [facility] Office Hazel Baez, [facility] 26449 M25.532 R41.840 L29.8 Office Visit 03/11/2017 10:30a [facility] Office Hazel Baez, [facility] 79008 R41.840 F32.9 M54.5 E66.3 Office Visit 01/20/2017 3:30p [facility] Office Hazel Baez, [facility] 87620 M54.5 E66.3 R41.840 Office Visit 11/12/2016 4:00p [facility] Office Hazel Baez, [facility] 18738 L29.8 R21 R53.83 F32.9 R07.89 Office Visit 09/12/2016 3:30p [facility] Office Hazel Baez, [facility] 46744 M25.562 R53.83 F32.9 R41.840 Z00.01 Z23 E55.9 M25.532 Office Visit 08/22/2016 3:30p [facility] Office Hazel Baez, [facility] 17873 M25.562 R53.83 Office Visit 08/14/2016 1:45p Main Office Jacob Starr-C 50683 M54.5 Office Visit 02/25/2016 4:30p Main Office Natividad Esquivel Afnp-C 72574 K29.60 Office Visit 02/01/2016 4:40p Main Office Vince Childers M.D. 84580 L71.0 R53.83 M13.0 Office Visit 11/23/2015 3:00p [facility] Office Hazel Baez, [facility] 23582 L71.0 Office Visit 06/22/2014 5:45p Main Office Hazel Baez, [facility] 28350 724.5 Office Visit 04/19/2014 8:45a [facility] Office Gina IrahetaKARO 75777 311 Office Visit 06/20/2013 4:20p Main Office Vince Childers M.D. 49429 708.2 706.1 346.90 784.0 Office Visit 05/11/2013 11:15a [facility] Office Sharyn VelazquezJacob-C 79664 787.91 Office Visit 04/05/2013 2:30p Main Office Sharyn VelazquezJacob-C 52764 780.79 786.59 272.4 346.90 300.09 Office Visit 07/29/2011 7:10p Main Office Vince Childers M.D. 07457 704.8 Office Visit 07/02/2011 7:20p Main Office Junior Corcoran M.D. 05838 V70.3 791.9 Office Visit 12/24/2010 4:20p [facility] Office Junior Corcoran M.D. 12352 464.10 Office Visit 11/14/2010 7:30p Main Office Riley Mason M.D. 78756 460 Office Visit 09/25/2010 7:00p Main Office Natividad EsquivelJacob-Ale 60871 V67.59 078.19 Office Visit 10/11/2008 3:40p Main Office Vince Childers M.D. 43360 786.59 Office Visit 04/24/2008 5:50p Main Office Vince Childers M.D. 66588 780.79 443.0 724.2 716.59 272.4 Office Visit 06/24/2007 11:00a [facility] Office Jaymie Maraih, [facility] 09978 V70.5 V05.8 Office Visit 03/15/2007 2:40p [place] [address] 692.9 Office Visit 11/13/2006 11:20a Main Office Vince Childers M.D. 86400 780.79 300.00 706.1 Office Visit 08/04/2006 1:00p Main Office Jaymie Parkrer, [facility] 48258 300.00 719.46 Office Visit 04/22/2006 3:40p Main Office Vince Childers M.D. 33467 719.46 Office Visit 04/24/2003 1:00p Main Office Jaymie Parkrer, [facility] 57800 530.81 686.9 Office Visit 09/22/2000 3:00p Main Office Riley Mason M.D. 67668 Plan of Care 12/22/2017 - Hazel Sommersbhart, FNPF32.9 Major depressive disorder, single episode, unspecifiedNew Medication:Wellbutrin XL 150 mgComments:??? More routine with adderall if you want to see your mood improve??Try Wellbutrin, but cautious, if symptoms persist you can't tolerate this [id number] Attention and concentration [id number] Insomnia, unspecifiedComments:Careful with the adderall after 2 pm; likely interferes with sleepREGIMENT your bedtime preparations-- ritual mattersSame place, same time, same way every single nightEven 5 minutes will help: prayer, meditation, sequential body relaxation, armoatherapyDistance from the "tasks" for a few minutesThe TVthing is a problem , continuous churn buttermaker you gotta work on this but I get itKeep a jotter by the bedside--- use this in the middle of the night instead of phone--AllComments:~B_~U_ Medication Management~b_~u_ Patient Understands medications he 's taking? Yes No Are there Barriers to Adherence? Yes No Has the patient been asked about herbal supplements and therapies, and OTC meds? Yes No
[2018-01-12 07:38] VITALS: BP 113/72
--- NOTE | 2018-01-12 07:42 | UC ---
Allergic Reaction HPI - HPI Summary HPI Summary: STARTED WELLBUTRINXL 12/26/17. ON 01/04/18 DEVELOPED AN ITCHY SENSATION. BY HAD DIFFUSE URTICARIA SO SHE STOPPED THE MED. TRIED TO CALL PCP SEVERAL TIMES OVER THE PAST WEEK AND HAS NOT RECEIVED A CALL BACK YET. LAST NIGHT LIPS BECAME TINGLY AND SLIGHTLY SWOLLEN. NO RESPIRATORY INVOLVEMENT. TOOK A BENADRYL WHICH HELPED A BIT. NO OTHER NEW EXPOSURES. - History of Current Complaint Chief Complaint: UCAllergicReaction Stated Complaint: ALLERGIC REACTION Time Seen by Provider: 01/12/18 07:40 Hx Obtained From: Patient Hx Last Menstrual Period: 1 week Onset/Duration: Gradual Onset, Lasting Days, Still Present Severity Initially: Moderate Severity Currently: Moderate Pain Intensity: 0 Pain Scale Used: 0-10 Numeric Location: Diffuse Character: Swelling, Pruritus, Hives Aggravating Factor(s): Nothing Alleviating Factor(s): Antihistamines - SLIGHT IMPROVEMENT WITH BENADRYL Associated Signs And Symptoms: Positive: Rash. Negative: Cough Wheezing, Difficulty Breathing, Hoarseness, Lightheadedness, Nausea, Throat Tightening - Allergies/Home Medications Allergies/Adverse Reactions: Allergies Allergy/AdvReac Type Severity Reaction Status Date / Time bupropion [From Wellbutrin] Allergy Severe Swelling Verified 01/12/18 07:27 hydrocodone Allergy Intermediate Nausea Verified 01/12/18 07:27 cold stimulus Allergy Severe See Comment Uncoded 11/17/17 06:43 Home Medications: Home Medications Biotin 1 dose PO DAILY 01/12/18 [History Confirmed 01/12/18] [place]-3/Dha/Epa/Fish Oil [Fish Oil 500 mg Softgel] 1 cap PO DAILY 01/12/18 [ History Confirmed 01/12/18] PMH/Surg Hx/FS Hx/Imm Hx - Additional Past Medical History Additional PMH: DDD/CHRONIC BACK PAIN Psychological History: Depression - Surgical History Surgical History: None Surgery Procedure, Year, and Place: Breast reduction for back pain 1 month ago - Family History Known Family History: Positive: None Negative: Hypertension Family History: no reported cardio vascular issues in family lineage - Social History Alcohol Use: Occasionally Substance Use Type: None, Prescribed Substance Use Comment - Amount & Last Used: adderall prn Smoking Status (MU): Never Smoked Tobacco - Immunization History Most Recent Influenza Vaccination: fall 2013 Most Recent Tetanus Shot: 01/04/15 Most Recent Pneumonia Vaccination: none Review of Systems Constitutional: Negative Skin: Rash ENT: Other - LIP TINGLING/SWELLING Respiratory: Negative Cardiovascular: Negative Gastrointestinal: Negative All Other Systems Reviewed And Are Negative: Yes Physical Exam Triage Information Reviewed: Yes Appearance: Well-Appearing, No Pain Distress, Well-Nourished Vital Signs: Initial Vital Signs Temp 98.2 F 01/12/18 07:31 Pulse 93 01/12/18 07:31 Resp 20 01/12/18 07:31 BP 113/72 01/12/18 07:31 Pulse Ox 100 01/12/18 07:31 Vital Signs Reviewed: Yes Eyes: Positive: Conjunctiva Clear ENT: Positive: Hearing grossly normal, Pharynx normal Neck: Positive: Supple, Nontender, No Lymphadenopathy Respiratory Exam: Normal Cardiovascular Exam: Normal Abdomen Description: Positive: Soft Musculoskeletal: Positive: No Edema Neurological: Positive: Alert Psychological: Positive: Age Appropriate Behavior Skin: Positive: rashes - BLOTCHY, RED RAISED RASH DIFFUSELY Re-Evaluation - Re-Evaluation First Eval Re-Evaluation Time: 08:35 - FEELS BETTER AFTER 60MG PREDNISONE, 10 MG LORATADINE AND 40MG FAMOTIDINE. READY TO D/C. Change: Improved Allergic Reaction Course/Dx - Differential Dx/Diagnosis Provider Diagnoses: ALLERGIC REACTION - ANGIOEDEMA AND URTICARIA Discharge - Discharge Plan Condition: Stable Disposition: HOME Prescriptions: predniSONE TAB* [Deltasone TAB*] 50 mg PO DAILY #6 tab Patient Education Materials: Urticaria (ED), Angioedema (ED), General Allergic Reaction (ED) Referrals: Vince Childers MD [Primary Care Provider] - If Needed Additional Instructions: AVOID HEAT AND HOT WATER TAKE OTC ANTIHISTAMINE DAILY (CLARITIN (LORATADINE), ZYRTEC (CETIRIZINE) OR ANNETTE (FEXOFENADINE) IN THE MORNING, 25-50MG BENADRYL AT NIGHT) DO NOT SCRATCH KEEP COOL, CLEAN AND DRY IF YOU HAVE RECURRENT SYMPTOMS CONSIDER EVAL BY CHANGE NUMBER OPERATOR. [facility] Address: [address], [place] [address] [facility] [address] [place] [address] [address] [place] [address]
[2018-01-12] MEDS ORDERED: predniSONE TAB* 20 MG PO ONE (08:01)
[2018-01-12] MEDS ORDERED: Famotidine TAB* 20 MG PO ONE (08:02)
[2018-01-12] MEDS ORDERED: LoraTADine TAB(NF) 10 MG TAB (AUTOSUB to CETIRIZINE) PO ONE (08:02)
== END 2018-01-12 08:44 | disposition home or self-care (01) ==
LOC: UCEAST 07:24
DX: L50.0 Allergic urticaria (principal); T43.295A Adverse effect of other antidepressants, initial encounter; Y92.9 Unspecified place or not applicable; Z88.5 Allergy status to narcotic agent; F32.9 Major depressive disorder, single episode, unspecified
CPT/HCPCS: 99212; A9270-GY; G0463; J7512

== ENCOUNTER 2018-05-13 18:41 | Emergency (ER) | payer BC ==
--- OUTSIDE RECORDS SUMMARY | 2018-05-13 18:48 | XMS REPORT ---
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 Unavailable Vince Childers MD Primary Care Physician Unavailable Payers Type Date Identification Numbers Payment Provider Subscriber Commercial Policy Number: [id number] [employer] Anirudh Dailey PayID: [id number] [address] [address] [place] [address] Medigap Part B Effective: 2016 Policy Number: [id number] [facility] Elayne Dailey Expires: 2018 PayID: [id number] [address] [place] [address] Problems Date Description Provider Status Onset: 09/22/2016 Localized superficial swelling of skin Rocael Vazquez MD Active Onset: 01/14/2017 Degeneration of lumbar intervertebral Juan Manuel Hawkins M.D. 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 consumes alcohol Smoking Patient has never smoked Recreational Drug Use Denies Drug Use Daily Caffeine 04/23/2018 Consumes on average 1 cup of regular coffee per day Exercise Type/Frequency Exercises regularly General Hx Text Allergies, Adverse Reactions, Alerts Date Description Reaction Status Severity Comments 09/22/2016 Hydrocodone Nausea and Vomiting active 04/23/2018 Wellbutrin active anaphylaxis Medications Medication Date Status Form Strength Qnty SIG Indications Ordering Provider Mometasone Active Cream 0.1% apply to Unknown Furoate /0000 affected areas twice a day prn Westcort Active Ointment 0.2% prn Unknown /0000 Xanax Active Tablets 0.5mg 1/2 to 1 tab Unknown /0000 as needed for severe anxiety attack Amphetamine-Dextr Active Tablets 5mg one tablet Unknown oamphetamine /0000 once daily as needed Epipen 2-José Active Solution 0.3mg/0.3 use as Unknown /0000 Auto-Inje ML directed ct Sumatriptan Active Tablets 25mg take one Unknown Succinate /0000 tablet at the first signs of headache. if no improvement take a second tablet 2 hours after the first Naproxen Active Tablets 500mg 1 tablet Unknown /0000 with food by mouth twice a day Cyclobenzaprine Hx Tablets 10mg Take One Unknown HCL /0000 Tablet By - Mouth Every Naproxen Hx Tablets 500mg Take One Unknown /0000 Tablet By - Mouth Twice 12/02 A Day Food Tramadol HCL Hx Tablets 50mg Take One Unknown /0000 Tablet By - Mouth Every 12/02 6 Hours Needed For Pain Maximum Lance Venlafaxine HCL Hx Tablets 25mg Take One Unknown /0000 Tablet By - Mouth Every Hydroxyzine HCL Hx Tablets 10mg Take One Unknown /0000 Tablet By - Mouth Four 01/14 Times A as Needed For Itching Famotidine Hx Tablets 40mg Take One Unknown /0000 Tablet By - Mouth Every 01/14 12 Hours 3 4 Days Epipen 2-José Hx Solution 0.3mg/0.3 use as Unknown /0000 Auto-Inje ML directed - ct 12/02 Vital Signs Date Vital Result Comment 04/23/2018 Height 67 inches 5'7" Weight 208.25 lb Heart Rate 86 /min BP Systolic Sitting [address]uf BP Diastolic Sitting 70 [address] R[address] lg cuf Respiratory Rate 16 /min BMI (Body Mass Index) 32.6 kg/m2 01/14/2017 Height 67 inches 5'7" Weight 219.00 lb Heart Rate 70 /min BP Systolic Sitting 130 mmHg BP Diastolic Sitting 90 mmHg Pain Level 4 BMI (Body Mass Index) 34.3 kg/m2 09/22/2016 Height 67 inches 5'7" Weight 221.00 lb Heart Rate 84 /min BP Systolic 103 mmHg BP Diastolic 72 mmHg BMI (Body Mass Index) 34.6 kg/m2 Results Description No Information Procedures Date CPT Code Description Status 04/23/2018 43999 EKG Tracing & Interpretation Completed Encounters Type Date Location Provider CPT E/M Dx Office Visit 01/14/2017 [facility] Juan Manuel Hawkins M.D. 61765 M51.36 1:20p Of [facility] E66.9 Office Visit 09/22/2016 2:30p [facility] [place] [address] R22.32 [facility] Plan of Care Future Appointment(s):05/11/2018 1:30 pm - Nurse Visit cc at [facility]05/10/2018 3:00 pm - Nurse Visit cc at [facility]05/20/2018 2 :30 pm - [place] [facility] Schedule at [facility]05/25/2018 1:00 pm - [place] [facility] Schedule at [facility]05/25/2018 1:30 pm - Tootie Javier M.D. at [facility]08/30/2018 8:30 am - Michael Freeman M.D. at [facility]04/23/2018 - Tootie Javier M.D.E66.9 Obesity , [id number] Chest pain, unspecifiedNew Orders:EchocardiogramStress Test, Exercise EchocardiogramFollow up:4-8 wks ov to discuss [id number] PalpitationsNew Orders:24 hour holter [id number] Tachycardia, unspecified
[2018-05-13 18:52] VITALS: BP 115/74
[2018-05-13] MEDS ORDERED: Albuterol/Ipratropium NEB.SOL* Albuterol 2.5 MG/Ipratropium 0.5 MG 3 ML INH ONE (20:01)
--- NOTE | 2018-05-13 20:12 | UC ---
Cornelia Pulido Elizabeth, scribed for Saray Choi MD on 05/13/18 at 1909 . Respiratory Complaint HPI - HPI Summary HPI Summary: This patient is a 32 year old F presenting to [facility] with a chief complaint of sneezing since 5 days ago. The patient reports that her symptoms improved slightly but then worsened since 3 days ago. The patient rates the pain 0/10 in severity. Symptoms aggravated by nothing. Symptoms alleviated by nothing. Patient reports difficulty taking deep breaths, congestion, nonproductive cough , and wheezing. Pt states feels tight. The patient has been taking Sudafed which has helped to improve her symptoms. Patient denies fever, chills, or rash. + sick contacts, Pt's medications reviewed this visit. - History of Current Complaint Chief Complaint: UCRespiratory Stated Complaint: SORE THROAT, CHEST CONGESTION Time Seen by Provider: 05/13/18 19:04 Hx Obtained From: Patient Hx Last Menstrual Period: IUD Onset/Duration: Gradual Onset, Lasting Days - 5 days, Still Present, Worse Since - 3 days ago Severity Initially: Mild Severity Currently: None Pain Intensity: 0 Pain Scale Used: 0-10 Numeric Character: Cough: Nonproductive Aggravating Factors: Nothing Alleviating Factors: Nothing Associated Signs And Symptoms: Positive: Dyspnea - with deep breaths, Wheezing, Nasal Congestion - Allergies/Home Medications Allergies/Adverse Reactions: Allergies Allergy/AdvReac Type Severity Reaction Status Date / Time bupropion [From Wellbutrin] Allergy Severe Swelling Verified 05/13/18 18:53 hydrocodone Allergy Intermediate Nausea Verified 05/13/18 18:53 cold stimulus Allergy Severe See Comment Uncoded 11/17/17 06:43 Home Medications: Home Medications Pseudoephedrine TAB* [Sudafed TAB*] 30 mg PO DAILY PRN 05/13/18 [History] PMH/Surg Hx/FS Hx/Imm Hx Previously Healthy: Yes - Surgical History Surgical History: None Surgery Procedure, Year, and Place: Breast reduction for back pain 2017 - Family History Known Family History: Positive: Other - lupus (mother) Negative: Hypertension Family History: no reported cardio vascular issues in family lineage, lupus ( mother) - Social History 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, 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 Alcohol Use: Occasionally Substance Use Type: None Substance Use Comment - Amount & Last Used: adderall prn Smoking Status (MU): Never Smoked Tobacco - Immunization History Most Recent Influenza Vaccination: fall 2013 Most Recent Tetanus Shot: 01/04/15 Most Recent Pneumonia Vaccination: none Review of Systems Constitutional: Negative - negative fever, negative chills Skin: Negative - negative rash ENT: Sinus Congestion Respiratory: Shortness Of Breath - difficulty taking deep breaths, wheezing, Cough - nonproductive All Other Systems Reviewed And Are Negative: Yes Physical Exam - Summary Physical Exam Summary: Vital Signs Reviewed: Yes A+Ox3, no distress Eyes: Conjunctiva Clear, MOLLY. EOM intact and full ENT: Hearing grossly normal TM x 2 clear, mmoist, uvula midline, no exudate, no erythema Neck: Positive: Supple Respiratory: Positive: coarse wheeze, no ronchi, coarse cough. + BS throughout no retractions Cardiovascular: RRR nl s1, s2 no m/r CBT <2 sec abd soft + BS nt/nd no guarding, no distension Musculoskeletal Exam: SIMS x 4 without difficulty Strength Intact, ROM Intact Neurological: Positive: Alert, + sensation throughout Psychological: Positive: Normal Response To Family Skin: Positive: no rash, no ecchymosis Triage Information Reviewed: Yes Vital Signs: Initial Vital Signs Temp 98.4 F 05/13/18 18:46 Pulse 96 05/13/18 18:46 Resp 18 05/13/18 18:46 BP 115/74 05/13/18 18:46 Pulse Ox 100 05/13/18 18:46 Diagnostic Evaluation - Laboratory O2 Sat by Pulse Oximetry: 100 Re-Evaluation - Re-Evaluation First Eval Change: Improved - Pt markedly improved following the neb + BS throughout wheezing resolved Pt Rx abx, neb, steroid Respiratory Course/Dx - Course Course Of Treatment: Patient presents to urgent care complaining of head congestion chest congestion cough and wheezing. Patient states she feels a little short of breath. No fevers or chills. Patient without improvement with [id number] medications. On exam patient was scattered wheezing and coarse cough. Will give nebulizer react to assess pain. Patient comfortable and in agreement with the plan. - Differential Dx/Diagnosis Provider Diagnoses: bronchitis Discharge - Sign-Out/Discharge Documenting (check all that apply): Discharge/Admit/Transfer - Discharge Plan Condition: Stable Disposition: HOME Discharge Disposition Comment: discharge home Prescriptions: Amoxicillin PO (*) [Amoxicillin 500 MG CAP*] 500 mg PO Q12H #19 cap predniSONE TAB* [Deltasone 20 MG TAB*] 20 mg PO DAILY #11 tab Patient Education Materials: Acute Bronchitis (ED) Forms: *Work Release Referrals: Vince Childers MD [Primary Care Provider] - Additional Instructions: - Take antibiotics exactly as prescribed until gone -Use your albuterol puffer - 2 puffs ever 4-6 hours for the next 3 days - then as needed - Take prednisone as prescribed until gone -Stay well hydrated - avoid excess caffeine and all alcohol -These infections are spread by oral secretions. Do not share eating or drinking utensils. Frequent hand washing is important. Clean items that may get your secretions on them such as cell phones, ipads, computer mouse, television remotes. Once you have been on antbiotics for 2 days, change your pillowcase and your toothbrush eat regular, healthy meals - okay to take over the counter decongestant, cough medication -Contact your doctor to arrange a follow-up appointment this week. Call your doctor, return here or go to the emergency department with any questions or concerns - Billing Disposition and Condition Condition: STABLE Disposition: Home The documentation as recorded by the Cornelia white Elizabeth accurately reflects the service I personally performed and the decisions made by , Saray Choi MD.
[2018-05-13] MEDS ORDERED: Amoxicillin PO (*) 500 MG CAP PO ONE (20:47)
[2018-05-13] MEDS ORDERED: Albuterol HFA INHALER* 8 gm MDI INH ONE (20:47)
== END 2018-05-13 21:00 | disposition home or self-care (01) ==
LOC: UCEAST 18:41
DX: J40 Bronchitis, not specified as acute or chronic (principal); Z88.6 Allergy status to analgesic agent; Z88.5 Allergy status to narcotic agent
CPT/HCPCS: 87651; 99213; A9270-GY; G0463

== ENCOUNTER 2019-12-03 22:49 | Emergency (ER) | payer OTHER ==
[2019-12-03 23:48] LABS: ABS Basophils 0.1 10^3/ul (0-0.2); ABS Eosinophils 0.1 10^3/ul (0-0.6); ABS Monocytes 0.6 10^3/ul (0-0.8); ABS Neutrophils 4.6 10^3/ul (1.5-7.7); Eosinophil % 1.3 %; Hematocrit 40 % (35-47); Hemoglobin 13.6 g/dL (12.0-16.0); Lymphocyte % 35.5 %; Mean Corpuscular HGB Conc 35 g/dL (31-36); Mean Corpuscular Hemoglobin 31 pg (27-31); Mean Corpuscular Volume 91 fL (80-97); Mean Platelet Volume 7.8 fL (7.4-10.4); Nucleated Red Blood Cells % 0.1; Platelet Count 342 10^3/uL (150-450); Red Blood Count 4.34 10^6 /uL (3.70-4.87); Red Cell Distribution Width 13 % (10-15); White Blood Count 8.5 10^3/uL (3.5-10.8)
[2019-12-03 23:53] LABS: INR 1.09 (0.82-1.09)
--- NOTE | 2019-12-04 00:02 | ED ---
HPI Cardiac - HPI Summary HPI Summary: Patient is a 33 y/o F presenting to [facility] with complaints of heart palpitations. She states that palpitations onset at around 1330 12/03/19 while she was driving in bad weather. Patient had initially thought that these Sx were a result of stress from the driving conditions. However, Sx progressively worsened throughout the day. She states that the palpitations were initially intermittent but have become constant. They are characterized as fast and pounding, as if she is "frightened". Some SOB with palpitations is noted. Patient reports previous episodes of sharp CP but states that these current Sx are dissimilar. Patient states that she had been evaluated by career development specialist for these previous episodes of sharp CP and nothing concerning was found. She denies recent illnesses, fever, cough, nausea, and diaphoresis. Patient is prescribed Adderall, which she states that she takes as needed. Last dosage was yesterday, 12/02/19, which was the first time she took this medication in over a month. She denies OTC medications and caffeine consumption. Patient notes that she had two cups of tea today. She also had a glass of wine at 199912/03/19 in order to see if this would alleviate Sx, but it did not. PSHx of breast reduction noted. Patient denies tobacco usage. She had IUD in place. FMHx of cardiac disease is denied, mother is noted to have lupus. Home medications and allergies are reviewed. - History of Current Complaint Chief Complaint: EDDysrhythmPalp Stated Complaint: CHEST PAIN PER PT Time Seen by Provider: 12/03/19 23:36 Hx Obtained From: Patient Hx Last Menstrual Period: IUD Onset/Duration: Still Present Timing: Constant Current Severity: None Pain Intensity: 0 Pain Scale Used: 0-10 Numeric Character: Fast, Pounding Aggravating Factor(s): Other: - initially thought stress, but Sx persisted throughout the day Alleviating Factor(s): Nothing Associated Signs and Symptoms: Positive: Shortness of Breath, Other: - negative - recent illness. Negative: Fever, Diaphoresis, Nausea, Cough, Productive Cough , Nonproductive Cough - Allergy/Home Medications Allergies/Adverse Reactions: Allergies Allergy/AdvReac Type Severity Reaction Status Date / Time bupropion [From Wellbutrin] Allergy Severe Swelling Verified 12/03/19 23:12 hydrocodone Allergy Intermediate Nausea Verified 12/03/19 23:12 cold stimulus Allergy Severe See Comment Uncoded 12/03/19 23:12 PMH/Surg Hx/FS Hx/Imm Hx Endocrine/Hematology History: Denies: Hx Diabetes, Hx Thyroid Disease Cardiovascular History: Denies: Hx Hypertension, Hx Pacemaker/ICD Respiratory History: Denies: Hx Asthma, Hx Chronic Obstructive Pulmonary Disease (COPD) Musculoskeletal History: Reports: Hx Arthritis - osteoarthritis, Other Musculoskeletal History - degenerative disc disease Sensory History: Denies: Hx Contacts or Glasses, Hx Hearing Aid Opthamlomology History: Denies: Hx Contacts or Glasses Neurological History: Reports: Hx Migraine - 2-3 TIMES PER MONTH- TREATS WITH IBUPROFEN, Other Neuro Impairments/Disorders - HX OF MIGRAINES Psychiatric History: Reports: Hx Anxiety - ONLY WHEN FLY'S, Hx Depression - NO MEDICATION FOR AT THIS TIME- STATES PLANS TO START MEDICATION SOON Denies: Hx Eating Disorder, Hx Panic Disorder, Hx of Violent Episodes Against Others - Cancer History Hx Chemotherapy: No - Surgical History Surgery Procedure, Year, and Place: Breast reduction for back pain 2017 Hx Anesthesia Reactions: No - Immunization History Date of Tetanus Vaccine: utd Date of Influenza Vaccine: fall 2017 Infectious Disease History: No Infectious Disease History: Denies: Hx Clostridium Difficile, Hx Hepatitis, Hx Human Immunodeficiency Virus (HIV), Hx of Known/Suspected MRSA, Hx Shingles, Hx Tuberculosis, Hx Known/ Suspected VRE, Hx Known/Suspected VRSA, History Other Infectious Disease, Traveled Outside the [place] in Last 30 Days - Family History Known Family History: Positive: Other - lupus (mother) Negative: Cardiac Disease, Hypertension Family History: no reported cardio vascular issues in family lineage, lupus ( mother) - Social History Alcohol Use: Occasionally Substance Use Type: Reports: None Substance Use Comment - Amount & Last Used: adderall and xanax prn Smoking Status (MU): Never Smoked Tobacco - Additional Comments History Additional Comments: PMHx of ADHD PSHx of breast reduction FMHx of lupus, none of cardiac disease Review of Systems - ROS Summary Review of Systems Summary: Home Medications Medication Instructions Recorded Confirmed Type Dextroamphetamine/Amphetamine 1 cap PO DAILY 04/08/17 12/03/19 History [Adderall Xr 5 mg-] Pseudoephedrine TAB* [Sudafed TAB*] 30 mg PO DAILY PRN 05/13/18 12/03/19 History Constitutional: Other - negative - recent illness Negative: Fever, Skin Diaphoresis Positive: Palpitations Positive: Shortness Of Breath. Negative: Cough Negative: Nausea All Other Systems Reviewed And Are Negative: Yes Physical Exam - Summary Physical Exam Summary: General: Well-developed, Well-nourished female. No acute distress. HEENT: Normocephalic, Atraumatic. Eyes: Conjuctiva normal, PERRL. Oropharynx: Clear, mucous membranes moist, (-) exudates. Neck: Soft, FROM, (-) lymphadenopathy, (-) thyromegaly, (-) JVD. Cardiovascular: Normal sinus rhythm, (-) murmur. Lungs: Clear to auscultation bilaterally (-) wheezes, (-) rales, (-) rhonchi. Abdomen: Soft, non-tender, non-distended, (-) organomegaly, normal bowel sounds. Back: (-) CVA tenderness Extremities: No edema. Skin: Warm, dry, (-) rash. Neuro: Alert and oriented x3, no focal deficits. Psychiatric: Mildly anxious-appearing. Triage Information Reviewed: Yes Vital Signs On Initial Exam: Initial Vitals Temp Pulse Resp BP Pulse Ox 98.9 F 84 20 132/92 100 12/03/19 22:51 12/03/19 22:51 12/03/19 22:51 12/03/19 22:51 12/03/19 22:51 Vital Signs Reviewed: Yes Procedures - Sedation Patient Received Moderate/Deep Sedation with Procedure: No Diagnostics - Vital Signs Vital Signs Temp Pulse Resp BP Pulse Ox 12/03/19 22:51 98.9 F 84 20 132/92 100 - Laboratory Lab Results: Lab Results 12/03/19 12/03/19 Range/Units 23:05 23:05 WBC 8.5 (3.5-10.8) 10^3/uL RBC 4.34 (3.70-4.87) 10^6 /uL Hgb 13.6 (12.0-16.0) g/dL Hct 40 (35-47) % MCV 91 (80-97) fL MCH 31 (27-31) pg MCHC 35 (31-36) g/dL RDW 13 (10-15) % Plt Count 342 (150-450) 10^3/uL MPV 7.8 (7.4-10.4) fL Neut % (Auto) 54.8 % Lymph % (Auto) 35.5 % [place] % (Auto) 7.6 % Eos % (Auto) 1.3 % Baso % (Auto) 0.8 % Absolute Neuts (auto) 4.6 (1.5-7.7) 10^3/ul Absolute Lymphs (auto) 3.0 (1.0-4.8) 10^3/ul Absolute Monos (auto) 0.6 (0-0.8) 10^3/ul Absolute Eos (auto) 0.1 (0-0.6) 10^3/ul Absolute Basos (auto) 0.1 (0-0.2) 10^3/ul Absolute Nucleated RBC 0.0 10^3/ul Nucleated RBC % 0.1 INR (Anticoag Therapy) 1.09 (0.82-1.09) Result Diagrams: 12/03/19 23:05 12/03/19 23:05 Lab Statement: Any lab studies that have been ordered have been reviewed, and results considered in the medical decision making process. - Radiology CXR Radiology Interpretation Completed By: ED Physician Summary of Radiographic Findings: CXR shows no infiltrate, no pleural effusion, pending official report. - EKG 2301 Cardiac Rate: NL - rate of 81 BPM EKG Rhythm: Sinus Rhythm Summary of EKG Findings: EKG at 2301 reveals normal sinus rhythm with rate of 81 BPM, no acute changes, no ischemic changes. This EKG was reviewed and interpreted by Dr. Cowan. Disposition - Course Course Of Treatment: 33 year old female presents with palpitations, feelings of heart racing, like she is afraid. started while driving in snow earlier. worsened throughout the day. no nausea, no diaphoresis. no sob. no h/o heart disease. physical exam wnl except mildly anxious appearing. workup essentially wnl. discharged to home. Follow up with PCP, follow up [place] for any worsening symptoms. - Diagnoses Provider Diagnoses: Palpitations Discharge ED - Sign-Out/Discharge Documenting (check all that apply): Patient Departure - discharge - Discharge Plan Condition: Stable Disposition: HOME Patient Education Materials: Heart Palpitations (ED) Referrals: María Kelly DO [Primary Care Provider] - 3 Days Additional Instructions: PLEASE RETURN TO ED FOR ANY NEW OR WORSENING SYMPTOMS. PLEASE FOLLOW UP WITH YOUR PRIMARY CARE PHYSICIAN WITHIN THREE DAYS. - Billing Disposition and Condition Condition: STABLE Disposition: Home - Attestation Statements Document Initiated by Connor: Yes Documenting Scribe: LAXMI LUTHER Provider For Whom Connor is Documenting (Include Credential): BABS MONTGOMERY MD Scribe Attestation: I, LAXMI LUTHER, scribed for BABS MONTGOMERY MD on 12/04/19 at 0426. Scribe Documentation Reviewed: Yes Provider Attestation: The documentation as recorded by the LAXMI white accurately reflects the service I personally performed and the decisions made by me, BABS MONTGOMERY MD Status of Scribe Document: Viewed
[2019-12-04 00:20] LABS: ALT 12 U/L (7-52); AST 15 U/L (13-39); Albumin 4.3 g/dL (3.2-5.2); Albumin/Globulin Ratio 1.3 (1-3); Alkaline Phosphatase 47 U/L (34-104); Anion Gap 10 mmol/L (2-11); BUN/Creatinine Ratio 12.2 (8-20); Blood Urea Nitrogen 12 mg/dL (6-24); CO2 Carbon Dioxide 27 mmol/L (22-32); Calcium 9.3 mg/dL (8.6-10.3); Chloride 102 mmol/L (101-111); EGFR African American 78.1 (>60); EGFR Non-African American 64.6 (>60); Globulin 3.2 g/dL (2-4); Glucose 77 mg/dL (70-100); Potassium 3.4 mmol/L (3.5-5.0); Sodium 139 mmol/L (135-145); Total Protein 7.5 g/dL (6.4-8.9)
[2019-12-04 00:27] LABS: HCG Pregnancy < 0.60 mIU/mL
[2019-12-04 00:33] LABS: Alcohol < 10 mg/dL (<10)
[2019-12-04 00:47] LABS: TSH (Thyroid Stimulating Horm) 4.19 mcIU/mL (0.34-5.60)
[2019-12-04 02:53] LABS: Urine Benzodiazepine Screen None Detected (None Detect); Urine Opiates Screen None Detected (None Detect)
[2019-12-04 03:07] VITALS: BP 107/72
== END 2019-12-04 03:00 | disposition home or self-care (01) ==
LOC: ED 22:49
DX: R00.2 Palpitations (principal); R06.02 Shortness of breath; Z79.899 Other long term (current) drug therapy
CPT/HCPCS: 36415; 71045; 80053; 80307; 80320; 83605; 84443; 84484; 84702; 85025; 85610; 93005; 99283; G0480

== ENCOUNTER 2019-12-19 14:19 | Emergency (ER) | payer OTHER ==
--- NOTE | 2019-12-19 16:53 | UC ---
Respiratory Complaint HPI - HPI Summary HPI Summary: 33 y/o female presents to the urgent care c/o nasal congestion, clear nasal discharge, body aches, ARIZA, dry cough for the past 3-4 days. Last night she sleept in the wrong position w/ her Rt shoulder and she woke up this morning unable to raise or move her RT shoulder. She has taken Nyquill PO to alleviate symptoms. Her and daughter has similar symptoms. Pain is 5/10. She denies fever, numbness or tingling sensation over her RT arm, sore throat, dizziness, SOB, chest pain,abdominal pain, N/V/D, neck pain. - History of Current Complaint Chief Complaint: UCRespiratory Stated Complaint: COUHG,CONGESTION,SORE THROAT,SHOULDER PAIN Time Seen by Provider: 12/19/19 16:52 Hx Obtained From: Patient Hx Last Menstrual Period: unknown ?: No - Pt w/ IUD and declines test Onset/Duration: Gradual Onset, Lasting Days - 3-4 days, Still Present, Worse Since - today Timing: Constant Severity Initially: Mild Severity Currently: Moderate Pain Intensity: 6 - TR shoulder pain Character: Cough: Nonproductive Alleviating Factors: OTC Meds Associated Signs And Symptoms: Positive: Chills, URI, Nasal Congestion, Hoarseness. Negative: Wheezing - Risk Factors Pulmonary Embolism Risk Factors: Negative Cardiac Risk Factors: Negative Pseudomonas Risk Factors: Negative Tuberculosis Risk Factors: Negative - Allergies/Home Medications Allergies/Adverse Reactions: Allergies Allergy/AdvReac Type Severity Reaction Status Date / Time bupropion [From Wellbutrin] Allergy Severe Swelling Verified 12/19/19 15:26 hydrocodone Allergy Intermediate Nausea Verified 12/19/19 15:26 cold stimulus Allergy Severe See Comment Uncoded 12/03/19 23:12 PMH/Surg Hx/FS Hx/Imm Hx Previously Healthy: Yes - Pt denies PMHX - Surgical History Surgical History: Yes Surgery Procedure, Year, and Place: Breast reduction for back pain 2017 - Family History Known Family History: Positive: Other - lupus (mother) Negative: Cardiac Disease, Hypertension Family History: no reported cardio vascular issues in family lineage, lupus ( mother), TOS - Social History Occupation: Employed Full-time Lives: With Family Alcohol Use: Occasionally Substance Use Type: None Substance Use Comment - Amount & Last Used: adderall and xanax prn Smoking Status (MU): Never Smoked Tobacco - Immunization History Most Recent Influenza Vaccination: fall 2013 Most Recent Tetanus Shot: 01/04/15 Most Recent Pneumonia Vaccination: none Review of Systems All Other Systems Reviewed And Are Negative: Yes Constitutional: Positive: Chills, Fatigue, Other - body aches Skin: Positive: Negative Eyes: Positive: Negative ENT: Positive: Nasal Discharge - clear, Sinus Congestion Respiratory: Positive: Cough - dry Cardiovascular: Positive: Negative Gastrointestinal: Positive: Negative Genitourinary: Positive: Negative Motor: Positive: Negative Neurovascular: Positive: Negative Musculoskeletal: Positive: Decreased ROM - RT shoulder, Myalgia, Other: - RT shoulder pain Neurological: Positive: Headache Psychological: Positive: Negative Is Patient Immunocompromised?: No Physical Exam - Summary Physical Exam Summary: VITAL SIGNS: Reviewed. GENERAL: Patient is a well developed and nourished female who is sitting comfortably in the examining table. Patient is not in any acute respiratory distress. HEAD AND FACE: No signs of trauma. No ecchymosis, hematomas or skull depressions. No sinus tenderness. EYES: PERRLA, EOMI x 2, No injected conjunctiva, no nystagmus. No photophobia. EARS: Hearing grossly intact. Ear canals and tympanic membranes are within normal limits. MOUTH: Positive pharynx with mild erythema, no exudates, No B/L tonsillar enlargement , no exudate. Uvula in midline. edematous nasal mucosa w/ clear nasal discharge, clear PND NECK: Supple, trachea is midline, Positive anterior cervical lymphadenopathy, no JVD, no carotid bruit, no c-spine tenderness, neck with full ROM. No meningeal signs, no Kernig's or brudzinskis signs. CHEST: Symmetric, no tenderness at palpation LUNGS: Clear to auscultation bilaterally. No wheezing or crackles. CVS: Regular rate and rhythm, S1 and S2 present, no murmurs or gallops appreciated. ABDOMEN: Soft, non-tender. No signs of distention. No rebound no guarding, and no masses palpated. Bowel sounds are normal. Musculoskeletal:Rt shoulder: The R shoulder is with/without obvious asymmetry or deformity when compared to the L shoulder. posterior shoulder w/ ecchymosis and bruising, no crepitus. No bony deformity or prominence of humeral head. No erythema, warmth. No Point Tenderness to palpation over the clavicle, or scapula. positive tenderness over Acromioclavicular joint and humeral head with mild swelling, NT to palpation of the bicipital groove . NT to palpation of the muscles of the sternocleidomastoid, pectoralis, biceps/triceps , deltoid, trapezius, . Limited ROM due to pain especially in adduction and abduction.on both passive and active, internal/external rotation, flexion/ extension. "empty can and drop arm test unable to perform due to pain. No axillary tenderness or lymphadenopathy. Normal sensation over the deltoid and fingers. Distal motor and neurovascular status is intact. NEURO: Alert and oriented x 3. No acute neurological deficits. Pt follows commands. SKIN: Dry and warm Triage Information Reviewed: Yes Vital Signs: Initial Vital Signs Temp 98.7 F 12/19/19 15:21 Pulse 76 12/19/19 15:21 Resp 16 12/19/19 15:21 BP 107/74 12/19/19 15:21 Pulse Ox 99 12/19/19 15:21 Respiratory Course/Dx - Course Course Of Treatment: 33 y/o female presents to the urgent care c/o nasal congestion, clear nasal discharge, body aches, ARIZA, dry cough for the past 3-4 days. Last night she sleept in the wrong position w/ her Rt shoulder and she woke up this morning unable to raise or move her RT shoulder. She has taken Nyquill PO to alleviate symptoms. Her and daughter has similar symptoms. Pain is 5/10. She denies fever, numbness or tingling sensation over her RT arm, sore throat, dizziness, SOB, chest pain,abdominal pain, N/V/D, neck pain. Hx obtained. Pt is hemodynamically stable, A&OX3, VS: WNL, with URI and AC joint tenderness on examination.Influenza A&B ordered: result: Influenza B positive.Pt Rx Tamiflu and ibuprofen PO to alleviates symptoms. RT shoulder X-ray ordered: IMPRESSION: NO ACUTE OSSEOUS INJURY. IF SYMPTOMS PERSIST, RECOMMEND REPEAT IMAGING as per radiologist. Shoulder immobilized with a shoulder sling for 2-3 days. Advised to f/u with PT referral for further evaluation and Orthopedic Sports Medicine referral if not improvement of symptoms. Also Advised on hand washing and wear a mask to avoid spreading. Pt advised to rest, increase fluid intake, eat well and avoid strenuous exercise..If symptoms do not improve or worsen advised to return to the urgent care or f/u with her PCP in 2-3 days for further evaluation and treatment. Pt understood and agreed w/ plan of care. - Differential Dx/Diagnosis Differential Diagnosis/HQI/PQRI: Asthma, Bronchitis, Influenza, Laryngitis, Lower Resp Infection, Sinusitis, Other Provider Diagnosis: Influenza B, Right shoulder tendonitis Discharge ED - Sign-Out/Discharge Documenting (check all that apply): Patient Departure - D/C home All imaging exams completed and their final reports reviewed: Yes - Discharge Plan Condition: Stable Disposition: HOME Prescriptions: Oseltamivir CAP* [Tamiflu CAP*] 75 mg PO BID #10 cap Patient Education Materials: Influenza (ED), Tendinitis (ED) Forms: *Work Release Referrals: María Kelly DO [Primary Care Provider] - 2 Days [facility] [Provider Group] - 1 Week Additional Instructions: 1- Please take the full course of the antiviral to avoid resistance. Encourage hand washing and wear a mask to avoid spreading. 2-Please continue taking Ibuprofen PO q6-8hrs prn as instructed after meals to alleviate fever, and sore throat. Increase fluid intake, eat well, rest and avoid strenuous exercise 3-If symptoms do not improve or worsen please return to the urgent care or f/u with your PCP in 2 days for further evaluation and treatment. 4-Please apply ice, keep your shoulder immobilized with the shoulder sling for 3-4 days and then resume movement slowly. Avoid strenuous exercise or heavu lifting. 5- Please f/u with Orthopedic from Sports Medicine 1 week is not improvement of symptoms for further evaluation and treatment. - Billing Disposition and Condition Condition: STABLE Disposition: Home
[2019-12-19 17:24] LABS: Influenza B Molecular POSITIVE (Negative)
[2019-12-19] MEDS ORDERED: Ibuprofen TAB* 400 MG PO ONE (17:47)
[2019-12-19 18:10] VITALS: BP 110/72
== END 2019-12-19 18:11 | disposition home or self-care (01) ==
LOC: UCEAST 14:19
DX: J10.1 Influenza due to other identified influenza virus with other respiratory manifestations (principal); M75.91 Shoulder lesion, unspecified, right shoulder; Z88.8 Allergy status to other drugs, medicaments and biological substances; Z88.5 Allergy status to narcotic agent; Z91.09 Other allergy status, other than to drugs and biological substances
CPT/HCPCS: 99213; A9270-GY; G0463

== ENCOUNTER 2022-05-06 09:08 | Inpatient (IN) ==
[~2022-05-06 09:08] MED LIST changes: -Buffered Lidocaine 0.9% SYRIN* 5 ML/SYR SYRINGE INTRADERM ONE; -Buffered Lidocaine 0.9% SYRIN* 5 ML/SYR SYRINGE ONE; +Buffered Lidocaine 1% SYRIN 1 ml INTRADERM ONE; -Bupivacaine 0.25% SDV* 30 ML ONE; +Dexamethasone IV 4 MG/ML VIAL 1 ml VIAL ONE; -Dexamethasone IV* 4 MG/ML 1 ML (4 MG) ONE; -DiMENhydriNATE IV* 50 MG/ML VIAL IV PUSH PRN; -DiMENhydriNATE IV* 50 MG/ML VIAL ONE; +Famotidine IV 10 MG/ML 2 ml VIAL (20 mg) IV ONE; -Famotidine TAB* 20 MG ONE; -Famotidine TAB* 20 MG PO ONE; -Ketorolac INJ* 30 MG/ML 1 ML VIAL IV PRN; -Ketorolac INJ* 30 MG/ML 1 ML VIAL ONE; +Lactated Ringers 1000 ml BAG 1,000 ML IV SCH; -Lidocaine 1% MPF wEPI 200,000* 30 ML SDV ONE; -Lidocaine 2% PF * 5 ML VIAL ONE; +Lidocaine 2% PF 5 ML VIAL ONE; +Metoclopramide 5 MG/ML VIAL (10 mg) ONE; -Metoclopramide TAB* 10 MG ONE; -Metoclopramide TAB* 10 MG PO ONE; +Ondansetron 4 mg VIAL 2 MG/ML 2 ml VIAL ONE; -Ondansetron INJ* 2 MG/ML VIAL ONE; +Propofol 10 MG/ML 20 ML BTL ONE; -Propofol* 10 MG/ML 20 ML BTL IV PUSH ONE; +Rocuronium 50 mg VIAL 10 mg/ml 5 ml VIAL (50 mg) ONE; +Scopolamine 1 mg/72hr PATCH TRANSDERM ONE; -Scopolamine 1.5 mg* PATCH ONE; -Sodium Citrate/Citric Acid* 15 ML UDC ONE; -Sodium Citrate/Citric Acid* 15 ML UDC PO ONE; -ceFAZolin 2 GM PREMIX (*) 2 GM/50 ML BAG IVPB ONE; -fentaNYL* 50 MCG/ML 2 ML VIAL (100 MCG VIAL) IV PRN; -fentaNYL* 50 MCG/ML 2 ML VIAL (100 MCG VIAL) ONE; -oxyCODONE/Acetamin 5/325 MG* TAB PO PRN; -traMADol TAB* 50 MG PO PRN
[2022-05-06] MEDS ORDERED: Heparin 5000 UNITS/ML 1 mL VIAL ONE (09:09)
[2022-05-06] MEDS ORDERED: Scopolamine 1 mg/72hr PATCH ONE (09:09)
[2022-05-06] MEDS ORDERED: Famotidine IV 10 MG/ML 2 ml VIAL (20 mg) ONE (09:09)
[2022-05-06] MEDS ORDERED: ceFAZolin 2 GM PREMIX 2 GM/50 ML BAG ONE (09:09)
[2022-05-06] MEDS ORDERED: ceFAZolin 1 GM in Dextrose 1 GM/50 ML BAG ONE (09:09)
[2022-05-06] MEDS ORDERED: Lidocaine 1% 50 ML MDV VIAL ONE (09:24)
[2022-05-06] MEDS ORDERED: fentaNYL 100 mcg/2 ml 50 MCG/ML VIAL ONE ×2 (10:31→14:54)
[2022-05-06] MEDS ORDERED: HYDROmorphone 0.5 MG/0.5 ML SYRINGE ONE ×2 (12:41→12:54)
[2022-05-06] MEDS ORDERED: HYDROmorphone 0.5 MG/0.5 ML SYRINGE IV SLOW PU PRN (12:47)
[2022-05-06] MEDS ORDERED: HYDROcodone/ACET. 7.5/325 LIQ 15 ML UDC PO PRN (12:47)
[2022-05-06] MEDS ORDERED: Ondansetron 4 mg VIAL 2 MG/ML 2 ml VIAL IV PRN (12:47)
[2022-05-06] MEDS ORDERED: Prochlorperazine 5 mg/ml 2 ml VIAL (10 mg) IV PRN (13:09)
[2022-05-06] MEDS ORDERED: Prochlorperazine 5 mg/ml 2 ml VIAL (10 mg) ONE (13:13)
[2022-05-06] MEDS ORDERED: fentaNYL 100 mcg/2 ml 50 MCG/ML VIAL IV PRN ×2 (13:26→14:51)
[2022-05-06] MEDS ORDERED: Promethazine INJ(RESTRICTED) 25 MG/ML 1 ml VIAL IM PRN (13:27)
[2022-05-06] MEDS: Lactated Ringers 1000 ml BAG 1,000 ML IV SCH (15:33)
[2022-05-06] MEDS: Heparin 5000 UNITS/ML 1 mL VIAL SUBCUT SCH (23:30)
[2022-05-07] MEDS: Heparin 5000 UNITS/ML 1 mL VIAL SUBCUT SCH ×2 (06:37→14:12)
[2022-05-07] MEDS: Lactated Ringers 1000 ml BAG 1,000 ML IV SCH (10:30)
[2022-05-07 11:38] VITALS: BP 132/75
[2022-05-07] MEDS ORDERED: D5W 1/2 NS KCl 20 meq 1000 ml 1,000 ML IV SCH (13:00)
== END 2022-05-07 16:00 | disposition home or self-care (01) | DRG 403 ==
LOC: AA 09:08 → SSU 15:45
PROVIDERS: ADMIT Surgery; ATTEND Surgery